=== PATIENT | female | born 1980 | race Caucasian/White ===

== ENCOUNTER 2019-06-20 09:59 | Inpatient (IN) | payer SELFPAY ==
[2019-06-20] VITALS (8 sets, daily range): BP systolic 132–188; BP diastolic 83–146; PULSE 88–129; RESP 14–20; TEMP 36.5–37; O2SAT 93–98
[2019-06-20] MEDS: folic acid 1 MG, multivitamin inj 10 ML, thiamine 100 MG in sodium chloride 0.9% 1,000 ML 252.8 MG IV (10:31)
[2019-06-20 10:39] LABS: Basophils # 0.1 10^3/uL (0.0-0.1); Eosinophils # 0.1 10^3/uL (0.0-0.8); Eosinophils % 1.5 %; Hematocrit 42.3 % (37.0-47.0); Hemoglobin 14.5 g/dL (11.5-15.3); Lymphocytes # 1.8 10^3/uL (0.8-4.8); Lymphocytes % 30.9 %; Mean Corpuscular HGB Conc 34.3 g/dL (30.0-36.0); Mean Corpuscular Hemoglobin 33.2 pg (28.0-34.0); Mean Corpuscular Volume 96.8 fL (81-99); Mean Platelet Volume 8.9 fL (7.4-10.4); Monocytes # 0.7 10^3/uL (0.2-0.9); Monocytes % 11.1 %; Neutrophils # 3.2 10^3/uL (1.8-7.7); Neutrophils % 55.3 %; Nucleated Red Blood Cells % 0 %; Platelet Count 406 10^3/cmm (130-400); Red Blood Count 4.37 10^6/uL (4.1-5.3); Red Cell Distribution Width 15.2 % (12.1-15.1); White Blood Count 5.9 10^3/uL (4.0-10.0)
[2019-06-20 10:51] LABS: Alanine Aminotransferase 28 U/L (0-33); Albumin Level 5.2 g/dL (3.5-5.2); Alkaline Phosphatase 122 IU/L (35-105); Anion Gap 19.2 (5-19); Aspartate Amino Transferase 89 U/L (0-32); Blood Urea Nitrogen 10 mg/dL (6-20); Calcium 10.2 mg/Dl (8.6-10.0); Carbon Dioxide 24 mmol/L (22-29); Chloride 92 mmol/L (98-107); Globulin 2.7 g/dL (1.3-4.6); Glomerular Filtration Rate 111.9 mL/min (90-130); Glucose 110 mg/dL (74-109); Potassium 3.2 mmol/L (3.5-5.1); Sodium 132 mmol/L (136-145); Total Bilirubin 1.6 mg/dL (0.15-1.2); Total Protein 7.9 g/dL (6.6-8.7)
[2019-06-20 10:53] LABS: HCG, Serum Qual Negative (Negative)
--- NOTE | 2019-06-20 11:10 | PC.NURSE ---
pt complaining of IV site pain. IV site unremarkable.
[2019-06-20 11:20] LABS: Acetaminophen < 5.0 ug/mL (10-30); Salicylate < 0.3 mg/dL (3-10)
[2019-06-20 11:22] LABS: Alcohol Level 303 mg/dL (0-10)
[2019-06-20 11:41] LABS: Amphetamines Screen Urine Negative (Negative); Barbiturates Screen Urine Negative (Negative); Benzodiazepines Screen Urine Negative (Negative); Cocaine Screen Urine Negative (Negative); Opiate Screen Urine Negative (Negative); PCP Screen Urine Negative (Negative); THC Screen Urine Positive (Negative)
--- NOTE | 2019-06-20 11:46 | ED_ITS ---
HPI - Psych General: Chief Complaint: Psychiatric Symptoms Stated Complaint: mhe Time Seen by Provider: 06/20/19 10:02 Source: patient Mode of arrival: ambulatory Limitations: no limitations History of Present Illness: HPI Narrative: Patient is a 39-year-old female who presents to ED today with complaints of worsening depression; patient states she is having a lot of difficulty with her , his family, and his kids; states the added stress test caused her to feel hopeless and worthless; in addition patient reports she is a chronic alcoholic; reports she would like help with this; she admits to marijuana use but no other drug use; she denies suicidal or homicidal ideations MD complaint: feels depressed Duration: constant History of same: Yes Context: recent alcohol abuse Associated psychiatric symptoms: depression Associated symptoms: Reports depression; Deny auditory hallucinations, visual hallucinations, homicidal ideation or suicidal ideation Review of Systems Const: Denies: fever or chills Card: Denies: chest pain, palpitations, lightheadedness or syncope Resp: Denies: shortness of breath GI: Denies: abdominal pain, nausea, vomiting or diarrhea Skin/Breast: Denies: rash Neuro: Denies: headache Psych: Reports: anxiety and depression; Denies: visual hallucinations, auditory hallucinations, suicidal ideation or homicidal ideation Physical Exam Const: COMMON NORMALS: no apparent distress, oriented x3, alert and well nourished GENERAL APPEARANCE: cooperative and well kempt Resp: COMMON NORMALS: normal respiratory effort and clear to auscultation bilaterally AUSCULTATION: clear to auscultation bilaterally Cardio: COMMON NORMALS: regular rate and regular rhythm RATE: regular rate RHYTHM: regular rhythm Neuro: COMMON NORMALS: oriented x3 SENSORIUM/ORIENTATION: Yes alert Psych: COMMON NORMALS: mental status grossly normal, thought process normal, cooperative, affect normal, speech normal and activity/motor behavior normal APPEARANCE: Yes well kempt ACTIVITY/MOTOR BEHAVIOR: Yes appropriate eye contact and No psychomotor agitation SPEECH: Yes normal speech THOUGHT PROCESS: normal thought process MEMORY/COGNITION: Yes cognition grossly intact INSIGHT: insight good JUDGEMENT: judgment good OTHER: tearful during exam MDM - Psych MDM Narrative: Medical decision making narrative: Dr. Rankin will place admit orders. Lab Data: Labs: Lab Results 06/20/19 06/20/19 06/20/19 Range/Units 10:22 10:22 10:22 WBC 5.9 (4.0-10.0) 10^3/ uL RBC 4.37 (4.1-5.3) 10^6/u L Hgb 14.5 (11.5-15.3) g/dL Hct 42.3 (37.0-47.0) % MCV 96.8 (81-99) fL MCH 33.2 (28.0-34.0) pg MCHC 34.3 (30.0-36.0) g/dL RDW 15.2 H (12.1-15.1) % Plt Count 406 H (130-400) 10^3/c mm MPV 8.9 (7.4-10.4) fL Neut % (Auto) 55.3 % Lymph % (Auto) 30.9 % Lander % (Auto) 11.1 % Eos % (Auto) 1.5 % Baso % (Auto) 1.0 % Neut # (Auto) 3.2 (1.8-7.7) 10^3/u L Lymph # (Auto) 1.8 (0.8-4.8) 10^3/u L Lander # (Auto) 0.7 (0.2-0.9) 10^3/u L Eos # (Auto) 0.1 (0.0-0.8) 10^3/u L Baso # (Auto) 0.1 (0.0-0.1) 10^3/u L Nucleated RBC % (a uto) 0 % Nucleated RBCs # 0.0 /100WBC Sodium 132 L (136-145) mmol/L Potassium 3.2 L (3.5-5.1) mmol/L Chloride 92 L (98-107) mmol/L Carbon Dioxide 24 (22-29) mmol/L Anion Gap 19.2 H (5-19) BUN 10 (6-20) mg/dL Creatinine 0.6 (0.5-0.9) mg/dL GFR Calculation 111.9 (90-130) mL/min Glucose 110 H (74-109) mg/dL Calcium 10.2 H (8.6-10.0) mg/Dl Magnesium (1.7-2.3) mg/dL Total Bilirubin 1.6 H (0.15-1.2) mg/dL AST 89 H (0-32) U/L ALT 28 (0-33) U/L Alkaline Phosphata se 122 H (35-105) IU/L Total Protein 7.9 (6.6-8.7) g/dL Albumin 5.2 (3.5-5.2) g/dL Globulin 2.7 (1.3-4.6) g/dL HCG, Qual Negative (Negative) Salicylates < 0.3 L (3-10) mg/dL Urine Opiates Scre en (Negative) ng/mL Acetaminophen < 5.0 L (10-30) ug/mL Ur Barbiturates Sc reen (Negative) ng/mL Ur Phencyclidine S crn (Negative) ng/mL Ur Amphetamines Sc reen (Negative) ng/mL U Benzodiazepines Scrn (Negative) ng/mL Urine Cocaine Scre en (Negative) ng/mL U Marijuana (THC) Screen (Negative) ng/mL Ethyl Alcohol 303 H* (0-10) mg/dL 06/20/19 06/20/19 Range/Units 10:22 10:30 WBC (4.0-10.0) 10^3/ uL RBC (4.1-5.3) 10^6/u L Hgb (11.5-15.3) g/dL Hct (37.0-47.0) % MCV (81-99) fL MCH (28.0-34.0) pg MCHC (30.0-36.0) g/dL RDW (12.1-15.1) % Plt Count (130-400) 10^3/c mm MPV (7.4-10.4) fL Neut % (Auto) % Lymph % (Auto) % Lander % (Auto) % Eos % (Auto) % Baso % (Auto) % Neut # (Auto) (1.8-7.7) 10^3/u L Lymph # (Auto) (0.8-4.8) 10^3/u L Lander # (Auto) (0.2-0.9) 10^3/u L Eos # (Auto) (0.0-0.8) 10^3/u L Baso # (Auto) (0.0-0.1) 10^3/u L Nucleated RBC % (a uto) % Nucleated RBCs # /100WBC Sodium (136-145) mmol/L Potassium (3.5-5.1) mmol/L Chloride (98-107) mmol/L Carbon Dioxide (22-29) mmol/L Anion Gap (5-19) BUN (6-20) mg/dL Creatinine (0.5-0.9) mg/dL GFR Calculation (90-130) mL/min Glucose (74-109) mg/dL Calcium (8.6-10.0) mg/Dl Magnesium 2.2 (1.7-2.3) mg/dL Total Bilirubin (0.15-1.2) mg/dL AST (0-32) U/L ALT (0-33) U/L Alkaline Phosphata se (35-105) IU/L Total Protein (6.6-8.7) g/dL Albumin (3.5-5.2) g/dL Globulin (1.3-4.6) g/dL HCG, Qual (Negative) Salicylates (3-10) mg/dL Urine Opiates Scre en Negative (Negative) ng/mL Acetaminophen (10-30) ug/mL Ur Barbiturates Sc reen Negative (Negative) ng/mL Ur Phencyclidine S crn Negative (Negative) ng/mL Ur Amphetamines Sc reen Negative (Negative) ng/mL U Benzodiazepines Scrn Negative (Negative) ng/mL Urine Cocaine Scre en Negative (Negative) ng/mL U Marijuana (THC) Screen Positive H (Negative) ng/mL Ethyl Alcohol (0-10) mg/dL Discharge Plan Discharge Patient Disposition: Xfer Psychiatric Hosp Clinical Impression: Chronic alcohol abuse Depression Qualifiers: Depression Type: major depressive disorder Major depression recurrence: recurrent Active/Remission status: currently active Major depression episode severity: moderate Qualified Code(s): F33.1 - Major depressive disorder, re current, moderate Acute alcohol intoxication Qualifiers: Complication of substance-induced condition: uncomplicated Qualified Code(s): F10.920 - Alcohol use, unspecified with intoxication, uncomplicated Condition: Stable Referrals: Obdulia Mejia FNP [Primary Care Provider] - Coding Level of Care Code ED Bowling [employer] Molder for yariel Fwdragan Exam Problem Focused
[2019-06-20 11:48] LABS: Magnesium 2.2 mg/dL (1.7-2.3)
--- NOTE | 2019-06-20 12:21 | PC.NURSE ---
complaining of headache.
--- NOTE | 2019-06-20 13:00 | PC.NURSE ---
NPU nurse requests IV removal and patient changed into paper scrubs. This was performed
[2019-06-20] MEDS: hyDROXYzine 25 mg Capsule 50 MG PO (13:40)
--- NOTE | 2019-06-20 13:41 | PC.NURSE ---
Addendum entered by Dona Moreno LPN 06/20/19 14:45: prn med effective pt no longer tearful, resting quietly in bed in room at current time, resp even et unlabored Original Note: PRN VISTARIL 50 MG GIVEN PO PER PT C/O ANXIETY. UPON ARRIVAL TO UNIT, PT TEARFUL, SHAKING, SCARED ABOUT BEING ADMITTED TO NPU. ASSURED BY STAFF WE ARE HERE TO PROVIDE EXCELLENT CARE. EDUCATED ABOUT UNIT RULES, PT VERBALIZED UNDERSTANDING. WILL CONT TO MONITOR FOR DESIRED MED EFFECTIVENESS.
--- NOTE | 2019-06-20 15:04 | PC.NURSE ---
PT NOTE; CLIENT PRESENTED TO THE UNIT WITH A NOSE PIERCING WITH A SMALL STUD IN PLACE . STAFF IN THE ER WELL STAFF ON THE UNIT WERE UNABLE TO REMOVE THE STUD FROM CLIENTS NOSE AT TIME OF ADMISSION. CLIENT IS BEING ADMITTED FOR DEPRESSION AND ETOH ABUSE. CLIENT DENIES SI/HI AND AUDITORY OR VISUAL HALLUCINATIONS. STAFF WILL CONTINUE TO MONITOR CLIENT AND DO 15 MINUTE ROUNDING PER UNIT POLICY RULES TO INSURE CLIENTS SAFETY WHILE SHE IS A PATIENT HERE ON THE UNIT.
[2019-06-20] MEDS: nicotine 21 mg Patch 1 PATCH TRANSDERMA (17:30)
[2019-06-20] MEDS: acetaminophen 325 mg Tablet 650 MG PO (22:04)
[2019-06-21] MEDS: acetaminophen 325 mg Tablet 650 MG PO (04:46)
[2019-06-21 05:54] VITALS: BP 147/106; PULSE 82; RESP 17; TEMP 36.5; O2SAT 98
[2019-06-21 08:08] VITALS: BP 146/98; PULSE 82; RESP 18; O2SAT 100
--- NOTE | 2019-06-21 08:15 | PC.NURSE ---
ativan 2mg administered per ciwa prtocol. med was scanned at 0912, but actually given at 0815. patient scored a 10. will monitor for drug effectiveness
[2019-06-21] MEDS: LORazepam 2 mg Tablet PO (09:12)
[2019-06-21] MEDS: folic acid 1 mg Tablet PO (09:13)
[2019-06-21] MEDS: thiamine 100 mg Tablet PO (09:13)
[2019-06-21] MEDS: multivitamin therapeutic Tablet 1 TAB PO (09:13)
--- NOTE | 2019-06-21 09:30 | PC.NURSE ---
FOLLOW UP PRN ATIVAN. PATIENT RESTING QUIETLY WITH EYES CLOSED. NO DISTRESS NOTED. WILL CONT TO MONITOR
--- NOTE | 2019-06-21 11:52 | P.HP_ITS ---
Providers/Chief Complaint Admitting Physician: Mike Mclain MD Primary Care Provider: Obdulia Mejia Chief Complaint: Depression,Alcohol Abuse HPI NPU History of Present Illness Christine Marr is a 39 year old female who presented to the emergency room with complaints of worsening depression, alcohol use chronic, and significant stressors with her family. This is her first psychiatric hospitalization and she reports and she presents to the interview with a significant change in the heart not wanting to be here and denying a desire for medication or any other kind of intervention. She reports that she had a bad night and was really stressed but now that she is slept she realizes that this is not a place for her. She is not really interested in answering questions and was mostly focused on whether or not she was on a 96-hour hold, meaning that she would have to stay. We discussed the fact that she was not on a hold and that as a voluntary patient she can choose to disengage from treatment. She denied any lethality, she reported an understanding that she needs to decrease her alcohol use, and did not really see her cannabis use as a problem to any degree. We discussed her ability to return to the emergency room, call crisis numbers or follow-up at [facility] to advance her mental health and addiction treatment. Psychiatric history: She denies significant treatment or medications, but endorses knowing she does have depression and anxiety issues. Substance abuse history: She does endorse ongoing cigarette, alcohol and marijuana use she denies any other significant addiction issues. And denies a current desire to pursue inpatient rehab or anything of that nature. She denied her psychosocial circumstances being contributory however notes in her chart do suggest some psychosocial challenges in the home. Meds NPU Home Medications Medication Instructions Recorded Confirmed Type Tylenol PM Extra Strength 2 tab PO BEDTIME 06/20/19 07/03/19 History lorazepam 0.5 mg tablet 0.5 mg PO QDAY PRN 07/03/19 07/03/19 History Allergies Allergy/AdvReac Type Severity Reaction Status Date / Time No Known Allergies Allergy Verified 07/03/19 16:45 PFSH NPU PFSH: Statuses (acute, chronic, etc) shown below reflect problem list status as previously entered and may not be historically accurate Social History Smoking and tobacco status: current every day smoker Alcohol intake: current Mental Status Exam MSE Comments: This is an overweight white female with adequate dress, grooming and eye contact. No abnormal movements except for mild psychomotor retardation. Cooperative with exam in no acute distress. Speech was slightly decreased rate and volume. Mood described as fine affect slightly subdued. Thought process organized. Thought content: Patient denied any suicidal or homicidal ideations, there were no delusions reported or noted, she denies any auditory or visual hallucinations. Attention and concentration were intact and memory appeared reliable but none were formally tested. She is alert and oriented x3. Insight and judgment are limited. Vitals/I&O/Wt Last Vital Signs Temp 97.7 F 06/21/19 05:54 Pulse 82 06/21/19 08:08 Resp 18 06/21/19 08:08 BP 146/98 06/21/19 08:08 Pulse Ox 100 06/21/19 08:08 Data NPU : 06/20/19 10:22 06/20/19 10:22 A&P Assessment and plan (1) Cannabis abuse: This is a 39-year-old white female with a long history of alcohol use and depression who presented to the emergency room endorsing a desire for inpatient treatment however upon arriving on the unit and staying overnight she has changed her mind and is desiring to pursue any treatment or follow-up on her own. 1. Continue current medication. 2. Encourage outpatient follow-up for her mental health and addiction issues. 3. Patient is voluntary and lacks any signs of credible lethality and denies all lethality and therefore has no grounds for 96-hour hold. 4. Recommend sober living aftercare at the highest level to which she is willing to commit. 5. Patient provided with crisis numbers in the event she has a change of heart or symptoms worsen. Status: Acute Code(s): F12.10 - Cannabis abuse, uncomplicated Involuntary Hold Information 96 Hour Hold: 96 Hour Involuntary Admission: No Attestations NPU Medical Necessity Statement*: Inpatient hospitalization would likely be beneficial and is medically necessary and would be clinically appropriate. However patient has no lethality or issues which would necessitate forced treatment and as a voluntary patient she is able to disengage her treatment AMA. Coding Level of Care Code Acute Substitute Bus Driver for Janis Gleason Diagnoses Cannabis abuse F12.10
--- NOTE | 2019-06-21 13:15 | PM.NDC ---
Diagnoses at Discharge Discharge Diagnosis (1) Cannabis abuse: Status: Acute Reason for Visit Reason for Visit: Reason For Visit: Depression,Alcohol Abuse Brief History: [facility] N[facility] History of Present Illness Christine Marr is a 39 year old female who presented to the emergency room with complaints of worsening depression, alcohol use chronic, and significant stressors with her family. This is her first psychiatric hospitalization and she reports and she presents to the interview with a significant change in the heart not wanting to be here and denying a desire for medication or any other kind of intervention. She reports that she had a bad night and was really stressed but now that she is slept she realizes that this is not a place for her. She is not really interested in answering questions and was mostly focused on whether or not she was on a 96-hour hold, meaning that she would have to stay. We discussed the fact that she was not on a hold and that as a voluntary patient she can choose to disengage from treatment. She denied any lethality, she reported an understanding that she needs to decrease her alcohol use, and did not really see her cannabis use as a problem to any degree. We discussed her ability to return to the emergency room, call crisis numbers or follow-up at [facility] to advance her mental health and addiction treatment. Psychiatric history: She denies significant treatment or medications, but endorses knowing she does have depression and anxiety issues. Substance abuse history: She does endorse ongoing cigarette, alcohol and marijuana use she denies any other significant addiction issues. And denies a current desire to pursue inpatient rehab or anything of that nature. She denied her psychosocial circumstances being contributory however notes in her chart do suggest some psychosocial challenges in the home. Hospital Course Hospital Course Christine was admitted to the inpatient unit for assistance with her depression and alcohol use as well as consideration of her cannabis use and psychosocial circumstances. She was admitted on a voluntary basis and the next morning she had expressed a desire to be discharged AGAINST MEDICAL ADVICE. She was evaluated and deemed to lack any credible lethality, she also denied thoughts to hurt herself or kill herself or hurt or kill anyone else. She was given no medications. During the hospitalization she had routine laboratory studies which were within normal limits except for a few outliers. Additionally she had a general medical evaluation which was also within normal limits except for noted intoxication. Discharge Summary At the time of discharge all lethality was denied, depression and anxiety were denied, a plan to avoid drugs of abuse was endorsed. And a commitment to outpatient follow-up which was recommended prior to discharge was reported. Patient was voluntary and lacking evidence of viable issues warranting a 96 hour hold, so was discharged. Involuntary Hold Information 96 Hour Hold: 96 Hour Involuntary Admission: No Mental Status Exam MSE Comments: This is an overweight white female with adequate dress, grooming and eye contact. No abnormal movements except for mild psychomotor retardation. Cooperative with exam in no acute distress. Speech was slightly decreased rate and volume. Mood described as fine affect slightly subdued. Thought process organized. Thought content: Patient denied any suicidal or homicidal ideations, there were no delusions reported or noted, she denies any auditory or visual hallucinations. Attention and concentration were intact and memory appeared reliable but none were formally tested. She is alert and oriented x3. Insight and judgment are limited. Discharge Data Vitals: Last Vital Signs Temp 98.5 F 06/21/19 15:58 Pulse 110 H 06/21/19 15:58 Resp 17 06/21/19 15:58 BP 153/112 06/21/19 15:58 Pulse Ox 99 06/21/19 15:58 Discharge Plan Discharge Patient Disposition: Home, Self-Care Condition: Stable Prescriptions: Continued Tylenol PM Extra Strength 25-500 mg Tablet 2 tab PO BEDTIME RF: 0 No Action lorazepam [Ativan] 0.5 mg tablet 0.5 mg PO QDAY PRNRF: 0 albuterol sulfate [ProAir HFA] 90 mcg/actuation HFA aerosol inhaler 2 puff INHALATION Q6H PRN (Reason: shortness of breath or wheezing) Qty: 8.5 RF: 0 Discharge Orders: Discharge Order (Routine); Ordered 06/21/19 Ordered By: Mike Mclain Referrals: Obdulia Mejia FNP [Primary Care Provider] - Activity Restrictions/Additional Instructions: To initiate services at [facility] you may go there during the walk-in hours and request initial intake. Walk-in hours 7:30-2:30 Friday through Friday at [facility] ([facility]) [address] [place] [address] [facility] crisis hotline Discharge Date/Time: 06/21/19 16:12 Discharge Attestations NPU Time Spent in Discharge Care*: greater than 30 min Specific Discharge Activities: Specific discharge activities: educating patient, discussing with case finishing machine adjuster/social workers/dc planners, documenting/other paperwork and evaluating patient/reviewing data Coding Level of Care Code Acute Customer Care Voice Consultant for Kamlag Fwd Diagnoses Cannabis abuse F12.10
[2019-06-21 14:00] VITALS: BP 163/110; PULSE 110; RESP 17; TEMP 36.9; O2SAT 99
[2019-06-21] MEDS: nicotine 2 mg Gum BUCCAL (14:23)
[2019-06-21] MEDS: hyDROXYzine 25 mg Capsule 50 MG PO (14:51)
--- NOTE | 2019-06-21 14:53 | PC.NURSE ---
PATIENT C/O ANXIETY. VISTARIL 50 MG ADMINISTERED. WILL MONITOR FOR DRUG EFFECTIVENESS
[2019-06-21 15:50] VITALS: PULSE 110; RESP 17; TEMP 36.9; O2SAT 99
[2019-06-21 15:52] VITALS: BP 153/112; PULSE 110; RESP 17; TEMP 36.9; O2SAT 99
[2019-06-21 15:58] VITALS: BP 153/112; PULSE 110; RESP 17; TEMP 36.9; O2SAT 99
--- NOTE | 2019-06-21 16:05 | PC.NURSE ---
PATIENTS BP 153/112 162/115. PHYSICIAN AWARE OF THIS. REPORTS PATIENT IS BEING DISCHARGED AGAINST HIS RECOMMENDATION TO STAY AND THIS THESE HIGH READINGS ARE PART OF HER WITHDRAWL SYMPTOMS. PATIENT STILL WISHES TO LEAVE
== END 2019-06-21 16:12 | disposition home or self-care (01) | DRG 885 ==
LOC: ER 12:43 → NP 13:11
PROVIDERS: Admitting Provider Psychiatry & Neurology Psychiatry; Emergency Provider Physician Assistant; PCP Nurse Practitioner; Visit Provider Psychiatry & Neurology Psychiatry
DX: F33.1 Major depressive disorder, recurrent, moderate (principal); F17.210 Nicotine dependence, cigarettes, uncomplicated; F10.920 Alcohol use, unspecified with intoxication, uncomplicated
CPT/HCPCS: 12345; 80053; 80307; 83735; 84703; 85025; 99282; J3411; J3490; J7030

== ENCOUNTER → 2019-07-03 16:47 | Outpatient (BNVA) | payer SELFPAY | PROVIDERS: Visit Provider Nurse Practitioner Family | DX: R50.9 Fever, unspecified (principal) | CPT/HCPCS: 87804 ==

== ENCOUNTER 2019-07-05 13:26 | Emergency (ER) | payer SELFPAY ==
[2019-07-05 14:22] VITALS: BP 160/126; PULSE 106; RESP 25; O2SAT 100; BMI 23.2
--- NOTE | 2019-07-05 17:04 | ED_ITS ---
Documented by User: Jm Mclean DO 07/12/19 06:44 HPI - Seizure General: Chief Complaint: Seizure Stated Complaint: seizure/fall/headache Time Seen by Provider: 07/05/19 16:33 History of Present Illness: HPI Narrative: 39-year-old female presents status post seizure she had about 4 hours prior to arrival. She did bite the right side of her tongue she also has a hematoma on the back left side of her head and large bruise on the right elbow. She was seizing for an unknown length of time she is had this previously was seen and evaluated started on medications but she did not continue the medication at her primary care doctor. She has had seizures multiple times in the past but has never had a full and thorough work- up for him. She does have a bit of a headache now and is somewhat drowsy and cold generally postictal although the worst of the postictal state seems to have already passed. Associated symptoms: Deny chest pain, chills, confusion, fever(s), malaise or syncope Review of Systems Const: Denies: fever, chills, body aches, fatigue, malaise or night sweats Eyes: Denies: change in vision or blurry vision ENMT: Denies: throat pain, oral sores/lesions, dental pain, nasal discharge or nasal congestion Card: Denies: chest pain, palpitations, irregular heart rhythm, edema, syncope , shortness of breath on exertion, shortness of breath when lying down or leg pain with exertion Resp: Denies: shortness of breath, productive cough, non-productive cough or wheezing GI: Denies: abdominal pain, nausea, vomiting, vomiting blood, coffee grounds in vomit, difficulty swallowing, heartburn/indigestion, diarrhea, constipation, cramping, blood in stool or black tarry stool : Denies: flank pain, painful urination, urinary frequency, urinary urgency, urinary incontinence or blood in urine Musc: Denies: neck pain, back pain, extremity pain, extremity swelling, joint pain or joint swelling Skin/Breast: Denies: rash, itching or redness Neuro: Reports: seizure-like activity; Denies: headache, numbness in extremities, weakness in extremities, changes in sensation, lack of coordination, difficulty walking, frequent falls, dizziness, vertigo or confusion Psych: Denies: anxiety, depression, loss of interest, visual hallucinations, auditory hallucinations, suicidal ideation or homicidal ideation Endo: Denies: excessive urination, excessive thirst, tired all the time or cold intolerance Christiano/Lymph: Denies: easy bruising, easy bleeding, petechiae, enlarged lymph nodes or tender lymph nodes PFSH ED PFSH: Statuses (acute, chronic, etc) shown below reflect problem list status as previously entered and may not be historically accurate Social History Smoking and tobacco status: current every day smoker Alcohol intake: current Female Reproductive History: Date of last menstrual period: 06/04/19 Physical Exam Const: COMMON NORMALS: no apparent distress GENERAL APPEARANCE: cooperative and comfortable ORIENTATION/CONSCIOUSNESS: Yes awake, Yes oriented to person, Yes oriented to place and Yes oriented to time HENMT: COMMON NORMALS: normocephalic, head/scalp atraumatic, hearing grossly normal bilaterally, external ears normal, EAC's normal, TM's normal bilaterally, nasal mucous membranes and turbinates normal, moist oral mucous membranes and oropharynx normal HEAD & SCALP: normocephalic and atraumatic NOSE: nasal mucous membranes and turbinates normal EXTERNAL EAR: Yes external ears normal EXTERNAL AUDITORY CANAL: EAC's normal TYMPANIC MEMBRANE: TM's normal bilaterally OTHER: Patient has bruising on the right side of the tongue with ecchymosis that appears fresh. Eye: COMMON NORMALS: PERRL, EOMs intact bilaterally, conjunctivae normal and no scleral icterus CONJUNCTIVA: Yes conjunctivae normal PUPIL: Yes PERRL Neck/C-Spine: COMMON NORMALS: full ROM, no lymphadenopathy, supple and no JVD Lymph: LYMPHATIC: no lymphadenopathy noted and no lymphedema noted Resp: COMMON NORMALS: normal respiratory effort, no retractions, no use of accessory muscles and clear to auscultation bilaterally AUSCULTATION: clear to auscultation bilaterally Cardio: COMMON NORMALS: no JVD, regular rate, regular rhythm and no murmurs RATE: regular rate RHYTHM: regular rhythm GI: COMMON NORMALS: soft to palpation and no hepatosplenomegaly AUSCULTATION: Yes normoactive bowel sounds PALPATION: Yes soft, No tender, No guarding and Yes no hepatosplenomegaly Extremity: COMMON NORMALS: normal to inspection, normal capillary refill, no clubbing, cyanosis or edema, no calf tenderness and no pedal edema Neuro: SENSORIUM/ORIENTATION: Yes oriented to person, Yes oriented to place and Yes oriented to time Skin: COMMON NORMALS: no rashes or lesions noted GENERAL SKIN EXAM: no rashes or lesions noted Course ED course: Patient appears to have had recent seizure. We will go ahead and do the work-up as above. Discussed with Dr. Burciaga at change of shift P assumes care will follow-up upon completion of labs and make disposition. Vital Signs: Vital signs: Vital Signs Pulse Rate 81 07/05/19 20:56 Respiratory Rate 16 07/05/19 20:56 Blood Pressure 128/93 07/05/19 20:56 Pulse Oximetry 95 07/05/19 20:56 MDM - Seizure Lab Data: Labs: Lab Results 07/05/19 07/05/19 07/05/19 Range/Units 17:43 18:04 18:04 WBC 12.1 H (4.0-10.0) 10^3/ uL RBC 3.71 L (4.1-5.3) 10^6/u L Hgb 12.3 (11.5-15.3) g/dL Hct 36.6 L (37.0-47.0) % MCV 98.7 (81-99) fL MCH 33.2 (28.0-34.0) pg MCHC 33.6 (30.0-36.0) g/dL RDW 15.8 H (12.1-15.1) % Plt Count 211 (130-400) 10^3/c mm MPV 11.4 H (7.4-10.4) fL Neut % (Auto) 82.1 % Lymph % (Auto) 11.3 % [place] % (Auto) 5.4 % Eos % (Auto) 0.5 % Baso % (Auto) 0.4 % Neut # (Auto) 9.9 H (1.8-7.7) 10^3/u L Lymph # (Auto) 1.4 (0.8-4.8) 10^3/u L [place] # (Auto) 0.7 (0.2-0.9) 10^3/u L Eos # (Auto) 0.1 (0.0-0.8) 10^3/u L Baso # (Auto) 0.1 (0.0-0.1) 10^3/u L Nucleated RBC % (a uto) 0 % Nucleated RBCs # 0.0 /100WBC Sodium (136-145) mmol/L Potassium (3.5-5.1) mmol/L Chloride (98-107) mmol/L Carbon Dioxide (22-29) mmol/L Anion Gap (5-19) BUN (6-20) mg/dL Creatinine (0.5-0.9) mg/dL GFR Calculation (90-130) mL/min Glucose (74-109) mg/dL Calcium (8.5-10.5) mg/dL Magnesium (1.7-2.3) mg/dL Total Bilirubin (0.15-1.2) mg/dL AST (0-32) U/L ALT (0-33) U/L Alkaline Phosphata se (35-105) IU/L Creatine Kinase (26-192) U/L Total Protein (6.6-8.7) g/dL Albumin (3.5-5.2) g/dL Globulin (1.3-4.6) g/dL HCG, Qual Negative (Negative) Urine Color Brown (Yellow) Urine Appearance Turbid (CLEAR) Urine pH 5 (5-7) Ur Specific Gravit y 1.025 (1.005-1.030) Urine Protein 1+ H (Negative) Urine Glucose (UA) Norm (Normal) Urine Ketones 1+ H (Negative) Urine Occult Blood Neg (Negative) Urine Nitrate Negative (Negative) Urine Bilirubin 1+ H (NEGATIVE) Urine Urobilinogen 1 H (Negative) mg/dL Ur Leukocyte Maddison ase Trace H (Negative) Urine RBC 0-4 H (0-2) /hpf Urine WBC 0-4 H (0-5) /hpf Ur Squamous Epith Cells 0-4 H (0-5) Urine Bacteria 4+ H (NONE) Hyaline Casts 0-4 H Fine Granular Cast s 0-4 H /lpf Urine Mucus 1+ Salicylates (3-10) mg/dL Urine Opiates Scre en (Negative) ng/mL Acetaminophen (10-30) ug/mL Ur Barbiturates Sc reen (Negative) ng/mL Ur Phencyclidine S crn (Negative) ng/mL Ur Amphetamines Sc reen (Negative) ng/mL U Benzodiazepines Scrn (Negative) ng/mL Urine Cocaine Scre en (Negative) ng/mL U Marijuana (THC) Screen (Negative) ng/mL Ethyl Alcohol (0-10) mg/dL 07/05/19 07/05/19 07/05/19 Range/Units 18:04 18:38 18:38 WBC (4.0-10.0) 10^3/ uL RBC (4.1-5.3) 10^6/u L Hgb (11.5-15.3) g/dL Hct (37.0-47.0) % MCV (81-99) fL MCH (28.0-34.0) pg MCHC (30.0-36.0) g/dL RDW (12.1-15.1) % Plt Count (130-400) 10^3/c mm MPV (7.4-10.4) fL Neut % (Auto) % Lymph % (Auto) % [place] % (Auto) % Eos % (Auto) % Baso % (Auto) % Neut # (Auto) (1.8-7.7) 10^3/u L Lymph # (Auto) (0.8-4.8) 10^3/u L [place] # (Auto) (0.2-0.9) 10^3/u L Eos # (Auto) (0.0-0.8) 10^3/u L Baso # (Auto) (0.0-0.1) 10^3/u L Nucleated RBC % (a uto) % Nucleated RBCs # /100WBC Sodium 133 L (136-145) mmol/L Potassium 2.8 L* (3.5-5.1) mmol/L Chloride 95 L (98-107) mmol/L Carbon Dioxide 23 (22-29) mmol/L Anion Gap 17.8 (5-19) BUN 14 (6-20) mg/dL Creatinine 0.6 (0.5-0.9) mg/dL GFR Calculation 111.9 (90-130) mL/min Glucose 105 (74-109) mg/dL Calcium 10.3 (8.5-10.5) mg/dL Magnesium 1.6 L (1.7-2.3) mg/dL Total Bilirubin 1.7 H (0.15-1.2) mg/dL AST 39 H (0-32) U/L ALT 15 (0-33) U/L Alkaline Phosphata se 97 (35-105) IU/L Creatine Kinase 119 (26-192) U/L Total Protein 7.5 (6.6-8.7) g/dL Albumin 4.9 (3.5-5.2) g/dL Globulin 2.6 (1.3-4.6) g/dL HCG, Qual (Negative) Urine Color (Yellow) Urine Appearance (CLEAR) Urine pH (5-7) Ur Specific Gravit y (1.005-1.030) Urine Protein (Negative) Urine Glucose (UA) (Normal) Urine Ketones (Negative) Urine Occult Blood (Negative) Urine Nitrate (Negative) Urine Bilirubin (NEGATIVE) Urine Urobilinogen (Negative) mg/dL Ur Leukocyte Maddison ase (Negative) Urine RBC (0-2) /hpf Urine WBC (0-5) /hpf Ur Squamous Epith Cells (0-5) Urine Bacteria (NONE) Hyaline Casts Fine Granular Cast s /lpf Urine Mucus Salicylates < 0.3 L (3-10) mg/dL Urine Opiates Scre en Negative (Negative) ng/mL Acetaminophen < 5.0 L (10-30) ug/mL Ur Barbiturates Sc reen Negative (Negative) ng/mL Ur Phencyclidine S crn Negative (Negative) ng/mL Ur Amphetamines Sc reen Negative (Negative) ng/mL U Benzodiazepines Scrn Negative (Negative) ng/mL Urine Cocaine Scre en Negative (Negative) ng/mL U Marijuana (THC) Screen Positive H (Negative) ng/mL Ethyl Alcohol < 10 (0-10) mg/dL Discharge Plan Discharge Patient Disposition: Home, Self-Care Clinical Impression: Generalized seizure Condition: Stable Prescriptions: New Keppra 500 mg tablet 500 mg PO Q12H 14 Days Qty: 28 RF: 0 No Action lorazepam [Ativan] 0.5 mg tablet 0.5 mg PO QDAY PRNRF: 0 albuterol sulfate [ProAir HFA] 90 mcg/actuation HFA aerosol inhaler 2 puff INHALATION Q6H PRN (Reason: shortness of breath or wheezing) Qty: 8.5 RF: 0 Tylenol PM Extra Strength 25-500 mg Tablet 2 tab PO BEDTIME RF: 0 Discharge Orders: Discharge Order (Routine); Ordered 07/05/19 Ordered By: Emily Sahu Referrals: Kathryn Bruno MD [Physician] - 4-7 days Sharonda Cho DO [Physician] - 4-7 days Discharge Diet: Advance as tolerated Discharge Activity: Resume usual activity Patient Instructions: Epilepsy (ED) Activity Restrictions/Additional Instructions: Please return to the ER immediately for any of the signs or symptoms listed on your discharge instruction sheets, worsening/changing of your symptoms, you are not getting better as quickly as expected, or for ANY other cause or concerns. No driving, no working at heights, no tub baths, no swimming alone or anything else that would put you at risk should you have another seizure. Discharge Date/Time: 07/05/19 20:57 Sign Out Sign Out Data: Patient Sign Out occurred on 07/05/19 at 18:12. Patient's care was discussed, and care was transferred from Jm Mclean DO to Emily Sahu. Sign Out Comment: hx seizures, seizure at noon today, hit head. GIven Keppra. Labs/CT head pending Last updated by Jm Mclean DO at 07/05/19 18:11 Coding Level of Care Code ED Council Member for Chg Fwd Documented by User: Emily Sahu 07/05/19 19:33 HPI - Seizure General: Chief Complaint: Seizure Stated Complaint: seizure/fall/headache Time Seen by Provider: 07/05/19 16:33 PFSH ED PFSH: Statuses (acute, chronic, etc) shown below reflect problem list status as previously entered and may not be historically accurate Social History Smoking and tobacco status: current every day smoker Alcohol intake: current Course Vital Signs: Vital signs: Vital Signs Pulse Rate 81 07/05/19 20:56 Respiratory Rate 16 07/05/19 20:56 Blood Pressure 128/93 07/05/19 20:56 Pulse Oximetry 95 07/05/19 20:56 MDM - Seizure MDM Narrative: Medical decision making narrative: Christine is a 39-year-old female who comes in with a breakthrough seizure. She is not taking her medications as she should. She will drink sometimes but she states this was not an alcohol withdrawal seizure. The patient is feeling better at this time. Her CT is normal. Her physical exam here is normal except for a bite fran to the tongue and a bruise to the back of her right elbow. The patient is feeling better and wants to go home. She does agree to take Keppra as prescribed and will follow-up with Dr. Bruno as well as establish with a primary care Dr. Cho. She denies any other concerns at this time would like to be discharged. Lab Data: Attestation: I reviewed the patient's lab results. Labs: Lab Results 07/05/19 07/05/19 07/05/19 Range/Units 17:43 18:04 18:04 WBC 12.1 H (4.0-10.0) 10^3/ uL RBC 3.71 L (4.1-5.3) 10^6/u L Hgb 12.3 (11.5-15.3) g/dL Hct 36.6 L (37.0-47.0) % MCV 98.7 (81-99) fL MCH 33.2 (28.0-34.0) pg MCHC 33.6 (30.0-36.0) g/dL RDW 15.8 H (12.1-15.1) % Plt Count 211 (130-400) 10^3/c mm MPV 11.4 H (7.4-10.4) fL Neut % (Auto) 82.1 % Lymph % (Auto) 11.3 % [place] % (Auto) 5.4 % Eos % (Auto) 0.5 % Baso % (Auto) 0.4 % Neut # (Auto) 9.9 H (1.8-7.7) 10^3/u L Lymph # (Auto) 1.4 (0.8-4.8) 10^3/u L [place] # (Auto) 0.7 (0.2-0.9) 10^3/u L Eos # (Auto) 0.1 (0.0-0.8) 10^3/u L Baso # (Auto) 0.1 (0.0-0.1) 10^3/u L Nucleated RBC % (a uto) 0 % Nucleated RBCs # 0.0 /100WBC Sodium (136-145) mmol/L Potassium (3.5-5.1) mmol/L Chloride (98-107) mmol/L Carbon Dioxide (22-29) mmol/L Anion Gap (5-19) BUN (6-20) mg/dL Creatinine (0.5-0.9) mg/dL GFR Calculation (90-130) mL/min Glucose (74-109) mg/dL Calcium (8.5-10.5) mg/dL Magnesium (1.7-2.3) mg/dL Total Bilirubin (0.15-1.2) mg/dL AST (0-32) U/L ALT (0-33) U/L Alkaline Phosphata se (35-105) IU/L Creatine Kinase (26-192) U/L Total Protein (6.6-8.7) g/dL Albumin (3.5-5.2) g/dL Globulin (1.3-4.6) g/dL HCG, Qual Negative (Negative) Urine Color Brown (Yellow) Urine Appearance Turbid (CLEAR) Urine pH 5 (5-7) Ur Specific Gravit y 1.025 (1.005-1.030) Urine Protein 1+ H (Negative) Urine Glucose (UA) Norm (Normal) Urine Ketones 1+ H (Negative) Urine Occult Blood Neg (Negative) Urine Nitrate Negative (Negative) Urine Bilirubin 1+ H (NEGATIVE) Urine Urobilinogen 1 H (Negative) mg/dL Ur Leukocyte Maddison ase Trace H (Negative) Urine RBC 0-4 H (0-2) /hpf Urine WBC 0-4 H (0-5) /hpf Ur Squamous Epith Cells 0-4 H (0-5) Urine Bacteria 4+ H (NONE) Hyaline Casts 0-4 H Fine Granular Cast s 0-4 H /lpf Urine Mucus 1+ Salicylates (3-10) mg/dL Urine Opiates Scre en (Negative) ng/mL Acetaminophen (10-30) ug/mL Ur Barbiturates Sc reen (Negative) ng/mL Ur Phencyclidine S crn (Negative) ng/mL Ur Amphetamines Sc reen (Negative) ng/mL U Benzodiazepines Scrn (Negative) ng/mL Urine Cocaine Scre en (Negative) ng/mL U Marijuana (THC) Screen (Negative) ng/mL Ethyl Alcohol (0-10) mg/dL 07/05/19 07/05/19 07/05/19 Range/Units 18:04 18:38 18:38 WBC (4.0-10.0) 10^3/ uL RBC (4.1-5.3) 10^6/u L Hgb (11.5-15.3) g/dL Hct (37.0-47.0) % MCV (81-99) fL MCH (28.0-34.0) pg MCHC (30.0-36.0) g/dL RDW (12.1-15.1) % Plt Count (130-400) 10^3/c mm MPV (7.4-10.4) fL Neut % (Auto) % Lymph % (Auto) % [place] % (Auto) % Eos % (Auto) % Baso % (Auto) % Neut # (Auto) (1.8-7.7) 10^3/u L Lymph # (Auto) (0.8-4.8) 10^3/u L [place] # (Auto) (0.2-0.9) 10^3/u L Eos # (Auto) (0.0-0.8) 10^3/u L Baso # (Auto) (0.0-0.1) 10^3/u L Nucleated RBC % (a uto) % Nucleated RBCs # /100WBC Sodium 133 L (136-145) mmol/L Potassium 2.8 L* (3.5-5.1) mmol/L Chloride 95 L (98-107) mmol/L Carbon Dioxide 23 (22-29) mmol/L Anion Gap 17.8 (5-19) BUN 14 (6-20) mg/dL Creatinine 0.6 (0.5-0.9) mg/dL GFR Calculation 111.9 (90-130) mL/min Glucose 105 (74-109) mg/dL Calcium 10.3 (8.5-10.5) mg/dL Magnesium 1.6 L (1.7-2.3) mg/dL Total Bilirubin 1.7 H (0.15-1.2) mg/dL AST 39 H (0-32) U/L ALT 15 (0-33) U/L Alkaline Phosphata se 97 (35-105) IU/L Creatine Kinase 119 (26-192) U/L Total Protein 7.5 (6.6-8.7) g/dL Albumin 4.9 (3.5-5.2) g/dL Globulin 2.6 (1.3-4.6) g/dL HCG, Qual (Negative) Urine Color (Yellow) Urine Appearance (CLEAR) Urine pH (5-7) Ur Specific Gravit y (1.005-1.030) Urine Protein (Negative) Urine Glucose (UA) (Normal) Urine Ketones (Negative) Urine Occult Blood (Negative) Urine Nitrate (Negative) Urine Bilirubin (NEGATIVE) Urine Urobilinogen (Negative) mg/dL Ur Leukocyte Maddison ase (Negative) Urine RBC (0-2) /hpf Urine WBC (0-5) /hpf Ur Squamous Epith Cells (0-5) Urine Bacteria (NONE) Hyaline Casts Fine Granular Cast s /lpf Urine Mucus Salicylates < 0.3 L (3-10) mg/dL Urine Opiates Scre en Negative (Negative) ng/mL Acetaminophen < 5.0 L (10-30) ug/mL Ur Barbiturates Sc reen Negative (Negative) ng/mL Ur Phencyclidine S crn Negative (Negative) ng/mL Ur Amphetamines Sc reen Negative (Negative) ng/mL U Benzodiazepines Scrn Negative (Negative) ng/mL Urine Cocaine Scre en Negative (Negative) ng/mL U Marijuana (THC) Screen Positive H (Negative) ng/mL Ethyl Alcohol < 10 (0-10) mg/dL Imaging Data^: CT Head: Radiologist's impression: [address] [address] [address] Scan Report Signed Patient: Christine Marr Unit #: [id number] : 1980 Age/Sex: 39 / F ADM Date: 07/05/19 Loc: ER Room/Bed: Attending Dr: Ordering Provider/Ordering MD: Jm Mclean DO Date of Service: 07/05/19 Procedure(s): CT head wo con* 12717 Accession Number(s): [id number] Report Number: [id number] PROCEDURE INFORMATION: Exam: CT Head Without Contrast Exam date and time: 07/05/2019 5:18 PM Age: 39 years old Clinical indication: Condition or disease; Convulsions or seizures; Unspecified; Additional info: Seizure, closed head injury with loss of consciousness. TECHNIQUE: Imaging protocol: Computed tomography of the head without contrast. Total DLP: 759.33 mGy-cm Radiation optimization: All CT scans at this facility use at least one of these dose optimization techniques: automated exposure control; mA and/or kV adjustment per patient size (includes targeted exams where dose is matched to clinical indication); or iterative reconstruction. COMPARISON: CT head wo con* [id number] 04/22/2019 12:03 AM FINDINGS: Brain: Normal. No hemorrhage. Unremarkable white matter. No mass effect. Ventricles: Normal. No ventriculomegaly. Bones/joints: Unremarkable. No acute fracture. Sinuses: Visualized sinuses are unremarkable. No fluid levels. Mastoid air cells: Visualized mastoid air cells are well aerated. Soft tissues: Left parietal scalp contusion. CT/CT head wo con* [id number] IMPRESSION: 1. No acute intracranial abnormality. 2. Left parietal scalp contusion. Radiation Dose CTDIVOL = (mGy): DLP = 759.33 (mGy-cm) Dictated By: Jeancarlos Melgar Signed By: Jeancarlos Melgar Signed Date/Time: 07/05/191913 DD/ 11 Discharge Plan Discharge Patient Disposition: Home, Self-Care Clinical Impression: Generalized seizure Condition: Stable Prescriptions: New Keppra 500 mg tablet 500 mg PO Q12H 14 Days Qty: 28 RF: 0 No Action lorazepam [Ativan] 0.5 mg tablet 0.5 mg PO QDAY PRNRF: 0 albuterol sulfate [ProAir HFA] 90 mcg/actuation HFA aerosol inhaler 2 puff INHALATION Q6H PRN (Reason: shortness of breath or wheezing) Qty: 8.5 RF: 0 Tylenol PM Extra Strength 25-500 mg Tablet 2 tab PO BEDTIME RF: 0 Discharge Orders: Discharge Order (Routine); Ordered 07/05/19 Ordered By: Emily Sahu Referrals: Kathryn Bruno MD [Physician] - 4-7 days Sharonda Cho DO [Physician] - 4-7 days Discharge Diet: Advance as tolerated Discharge Activity: Resume usual activity Patient Instructions: Epilepsy (ED) Activity Restrictions/Additional Instructions: Please return to the ER immediately for any of the signs or symptoms listed on your discharge instruction sheets, worsening/changing of your symptoms, you are not getting better as quickly as expected, or for ANY other cause or concerns. No driving, no working at heights, no tub baths, no swimming alone or anything else that would put you at risk should you have another seizure. Discharge Date/Time: 07/05/19 20:57 Sign Out Sign Out Data: Patient Sign Out occurred on 07/05/19 at 18:12. Patient's care was discussed, and care was transferred from Jm Mclean DO to Emily Sahu. Sign Out Comment: hx seizures, seizure at noon today, hit head. GIven Keppra. Labs/CT head pending Last updated by Jm Mclean DO at 07/05/19 18:11 Coding Level of Care Code ED Council Member for Chg Victorino
--- NOTE | 2019-07-05 17:15 | CTR_ITS ---
PROCEDURE INFORMATION: Exam: CT Head Without Contrast Exam date and time: 07/05/2019 5:18 PM Age: 39 years old Clinical indication: Condition or disease; Convulsions or seizures; Unspecified; Additional info: Seizure, closed head injury with loss of consciousness. TECHNIQUE: Imaging protocol: Computed tomography of the head without contrast. Total DLP: 759.33 mGy-cm Radiation optimization: All CT scans at this facility use at least one of these dose optimization techniques: automated exposure control; mA and/or kV adjustment per patient size (includes targeted exams where dose is matched to clinical indication); or iterative reconstruction. COMPARISON: CT head wo con* [id number] 04/22/2019 12:03 AM FINDINGS: Brain: Normal. No hemorrhage. Unremarkable white matter. No mass effect. Ventricles: Normal. No ventriculomegaly. Bones/joints: Unremarkable. No acute fracture. Sinuses: Visualized sinuses are unremarkable. No fluid levels. Mastoid air cells: Visualized mastoid air cells are well aerated. Soft tissues: Left parietal scalp contusion. CT/CT head wo con* [id number] IMPRESSION: 1. No acute intracranial abnormality. 2. Left parietal scalp contusion. Radiation Dose CTDIVOL = (mGy): DLP = 759.33 (mGy-cm)
--- NOTE | 2019-07-05 17:48 | PC.NURSE ---
Patient to restroom with hydrology technician
[2019-07-05 17:57] LABS: Basophils # 0.1 10^3/uL (0.0-0.1); Basophils % 0.4 %; Eosinophils # 0.1 10^3/uL (0.0-0.8); Eosinophils % 0.5 %; Hematocrit 36.6 % (37.0-47.0); Hemoglobin 12.3 g/dL (11.5-15.3); Lymphocytes # 1.4 10^3/uL (0.8-4.8); Lymphocytes % 11.3 %; Mean Corpuscular HGB Conc 33.6 g/dL (30.0-36.0); Mean Corpuscular Hemoglobin 33.2 pg (28.0-34.0); Mean Corpuscular Volume 98.7 fL (81-99); Mean Platelet Volume 11.4 fL (7.4-10.4); Monocytes # 0.7 10^3/uL (0.2-0.9); Monocytes % 5.4 %; Neutrophils # 9.9 10^3/uL (1.8-7.7); Neutrophils % 82.1 %; Nucleated Red Blood Cells % 0 %; Platelet Count 211 10^3/cmm (130-400); Red Blood Count 3.71 10^6/uL (4.1-5.3); Red Cell Distribution Width 15.8 % (12.1-15.1); White Blood Count 12.1 10^3/uL (4.0-10.0)
[2019-07-05 18:10] LABS: Slide Review Slide Review Perform
[2019-07-05 18:29] LABS: Protein Urine 1+ (Negative); Specific Gravity, Urine 1.025 (1.005-1.030); Urine Appearance Turbid (CLEAR); Urine Color Brown (Yellow); pH Urine 5 (5-7)
[2019-07-05 18:30] LABS: Add Urine Microscopic? YES; Bilirubin Urine 1+ (NEGATIVE); Blood Urine Neg (Negative); Glucose Urine UA Norm (Normal); HCG Qualitative Urine. Negative (Negative); Ketones Urine 1+ (Negative); Leukocyte Esterase Urine Trace (Negative); Nitrate Urine Negative (Negative); Urobilinogen Urine 1 mg/dL (Negative)
[2019-07-05 18:36] LABS: Bacteria Urine 4+; Fine Granular Casts Urine 0-4 /lpf; Hyaline Casts Urine 0-4; Mucus Urine 1+; RBC Urine 0-4 /hpf (0-2); Squamous Epithelial Cell Urine 0-4 (0-5); WBC Urine 0-4 /hpf (0-5)
[2019-07-05 18:47] LABS: Amphetamines Screen Urine Negative (Negative); Barbiturates Screen Urine Negative (Negative); Benzodiazepines Screen Urine Negative (Negative); Cocaine Screen Urine Negative (Negative); Opiate Screen Urine Negative (Negative); PCP Screen Urine Negative (Negative); THC Screen Urine Positive (Negative)
[2019-07-05 19:10] LABS: Alanine Aminotransferase 15 U/L (0-33); Albumin Level 4.9 g/dL (3.5-5.2); Alkaline Phosphatase 97 IU/L (35-105); Anion Gap 17.8 (5-19); Aspartate Amino Transferase 39 U/L (0-32); Blood Urea Nitrogen 14 mg/dL (6-20); Calcium 10.3 mg/dL (8.5-10.5); Carbon Dioxide 23 mmol/L (22-29); Chloride 95 mmol/L (98-107); Creatine Phosphokinase 119 U/L (26-192); Globulin 2.6 g/dL (1.3-4.6); Glomerular Filtration Rate 111.9 mL/min (90-130); Glucose 105 mg/dL (74-109); Sodium 133 mmol/L (136-145); Total Bilirubin 1.7 mg/dL (0.15-1.2); Total Protein 7.5 g/dL (6.6-8.7)
[2019-07-05 19:12] LABS: Acetaminophen < 5.0 ug/mL (10-30); Salicylate < 0.3 mg/dL (3-10)
[2019-07-05 19:13] LABS: Alcohol Level < 10 mg/dL (0-10); Potassium 2.8 mmol/L (3.5-5.1)
[2019-07-05 19:37] LABS: Magnesium 1.6 mg/dL (1.7-2.3)
[2019-07-05] MEDS: magnesium oxide 400 mg tablet PO (19:45)
[2019-07-05] MEDS: LORazepam 1 mg Tablet PO (19:48)
[2019-07-05 20:56] VITALS: BP 128/93; PULSE 81; RESP 16; O2SAT 95
--- NOTE | 2019-07-07 13:17 | DCPLANNER ---
division sales manager had message to speak with patient about a getting established with a primary care physician, and a follow up appointment for patient with Dr. Bruno. division sales manager called patients phone number of [phone]. division sales manager got a recording that stated the phone number is no longer in service. division sales manager will send patient a letter asking patient to call case liner about follow up appointments.
== END 2019-07-05 20:57 | disposition home or self-care (01) ==
PROVIDERS: Family Medicine; Emergency Provider Emergency Medicine
DX: G40.89 Other seizures (principal); F17.210 Nicotine dependence, cigarettes, uncomplicated
CPT/HCPCS: 36415; 70450; 80053; 80307; 81001; 81025; 82550; 83735; 85025; 99282; J1953

== ENCOUNTER 2019-08-29 01:24 | Emergency (ER) | payer SELFPAY ==
[2019-08-29 01:24] VITALS: BP 150/98; PULSE 112; RESP 24; TEMP 36.7; O2SAT 100
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
--- NOTE | 2019-08-29 01:34 | XR_ITS ---
WS: [id number] XR wrist LT min 3V* [id number] REASON FOR EXAM: INJURY/PAIN FINDINGS: A linear deformity is seen in the radius suggesting a nondisplaced fracture. The remaining ulna radius were normal. The positioning is satisfactory. The carpal bones are normal. XR/XR wrist LT min 3V* [id number] IMPRESSION: Nondisplaced fracture of the radius
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
--- NOTE | 2019-08-29 01:35 | XR_ITS ---
WS: [id number] XR chest 1V portable [id number] REASON FOR EXAM: cough FINDINGS: The left rib cage show no definite fracture single frontal view. The heart mediastinum were normal. The lung sanches are well aerated. No pneumonia, pleural effusion, pulmonary edema, pneumothorax, or m ass effect. The hilum and apices normal. No osseous abnormalities. XR/XR chest 1V portable [id number] IMPRESSION: Negative chest for active pathology The left rib cage show no definite fractures.
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
[2019-08-29] MEDS: morphine 4 mg/mL SDV 1 mL IVP (01:43)
[2019-08-29] MEDS: ondansetron 2 mg/ML SDV 2 mL 4 MG IVP (01:44)
[2019-08-29 01:46] VITALS: RESP 18; TEMP 36.4; BMI 22.6
[2019-08-29 01:54] LABS: Basophils # 0.1 10^3/uL (0.0-0.1); Basophils % 0.6 %; Eosinophils % 0.1 %; HCG, Serum Qual Negative (Negative); Hematocrit 44.6 % (37.0-47.0); Hemoglobin 15.3 g/dL (11.5-15.3); Lymphocytes # 1.7 10^3/uL (0.8-4.8); Lymphocytes % 16.6 %; Mean Corpuscular HGB Conc 34.3 g/dL (30.0-36.0); Mean Corpuscular Hemoglobin 32.7 pg (28.0-34.0); Mean Corpuscular Volume 95.3 fL (81-99); Mean Platelet Volume 9.2 fL (7.4-10.4); Monocytes # 0.5 10^3/uL (0.2-0.9); Monocytes % 5.2 %; Neutrophils # 7.9 10^3/uL (1.8-7.7); Nucleated Red Blood Cells % 0 %; Platelet Count 437 10^3/cmm (130-400); Red Blood Count 4.68 10^6/uL (4.1-5.3); Red Cell Distribution Width 16.3 % (12.1-15.1); White Blood Count 10.2 10^3/uL (4.0-10.0)
[2019-08-29 02:05] LABS: Alanine Aminotransferase 17 U/L (0-33); Albumin Level 5.7 g/dL (3.5-5.2); Alkaline Phosphatase 113 IU/L (35-105); Anion Gap 23.4 (5-19); Aspartate Amino Transferase 61 U/L (0-32); Blood Urea Nitrogen 9 mg/dL (6-20); Calcium 10.7 mg/dL (8.5-10.5); Carbon Dioxide 22 mmol/L (22-29); Chloride 94 mmol/L (98-107); Globulin 3.3 g/dL (1.3-4.6); Glomerular Filtration Rate 93.6 mL/min (90-130); Glucose 127 mg/dL (65-115); Osmolality Calculated 280 mOsm/kg (285-295); Potassium 3.4 mmol/L (3.5-5.1); Sodium 136 mmol/L (136-145); Total Bilirubin 1.2 mg/dL (0.15-1.2)
[2019-08-29] MEDS: iohexol 300 mg/mL 100 mL Btl IV (02:24)
[2019-08-29 03:03] VITALS: RESP 20
[2019-08-29] MEDS: sodium chloride 0.9% 1,000 ML 999 ML IV ×2 (03:03→03:44)
[2019-08-29] MEDS: HYDROmorphone 1 mg/mL INJ 1 mL 0.5 MG IVP ×2 (03:03→04:40)
[2019-08-29 04:10] LABS: Amphetamines Screen Urine Positive (Negative); Barbiturates Screen Urine Negative (Negative); Benzodiazepines Screen Urine Negative (Negative); Cocaine Screen Urine Negative (Negative); Opiate Screen Urine Positive (Negative); PCP Screen Urine Negative (Negative); THC Screen Urine Positive (Negative)
[2019-08-29] MEDS: ketorolac 30 mg/mL INJ 15 MG IVP (04:40)
[2019-08-29 04:49] VITALS: BP 142/84; PULSE 86; RESP 20; O2SAT 98
[2019-08-29 04:50] VITALS: BP 142/88; PULSE 88; RESP 20
[2019-08-29 05:32] LABS: Bacteria Urine 1+; Bilirubin Urine Neg (NEGATIVE); Blood Urine 2+ (Negative); Glucose Urine UA Norm (Normal); Hyaline Casts Urine 0-4; Ketones Urine Negative (Negative); Leukocyte Esterase Urine Negative (Negative); Nitrate Urine Negative (Negative); Protein Urine 3+ (Negative); RBC Urine 0-4 /hpf (0-2); Specific Gravity, Urine 1.005 (1.005-1.030); Urine Appearance Clear (CLEAR); Urine Color Yellow (Yellow); Urobilinogen Urine Norm (Negative); WBC Urine 0-4 /hpf (0-5); pH Urine 5 (5-7)
--- NOTE | 2019-08-30 14:50 | DCPLANNER ---
account relationship manager had message to schedule a follow up appointment for patient with ortho. account relationship manager called ortho, spoke with Pat, gave clinic patients information. account relationship manager was told that patients information would be printed and reviewed. Clinic will call case making machine operator and patient with appointment information.
--- NOTE | 2019-09-03 08:41 | DCPLANNER ---
Patient had an appointment scheduled for 08.31.19 with ortho, patient did attend the appointment.
== END 2019-08-29 04:52 | disposition home or self-care (01) ==
PROVIDERS: Emergency Provider Emergency Medicine
DX: S52.92XA Unspecified fracture of left forearm, initial encounter for closed fracture (principal); S22.42XA Multiple fractures of ribs, left side, initial encounter for closed fracture; F17.200 Nicotine dependence, unspecified, uncomplicated; V89.2XXA Person injured in unspecified motor-vehicle accident, traffic, initial encounter; Y92.410 Unspecified street and highway as the place of occurrence of the external cause
CPT/HCPCS: 12345; 29125; 70450; 71045; 71260; 72125; 72170; 73110; 74177; 80053; 80306; 81001; 83735; 84703; 85025; 96360; 96361; 96374; 96375; 96376; 99283; 99284; A9270; J0131; J1170; J1885; J2270; J2405; J7030; Q9967

== ENCOUNTER 2019-08-31 10:48 | Outpatient (CLI) | payer OTHER, SELFPAY | END 2019-08-31 10:49 | disposition home or self-care (01) | LOC: SPT 10:50 → SOT 11:57 | PROVIDERS: Visit Provider Orthopaedic Surgery | DX: S52.532D Colles' fracture of left radius, subsequent encounter for closed fracture with routine healing (principal); X58.XXXD Exposure to other specified factors, subsequent encounter | CPT/HCPCS: L3982 ==

== ENCOUNTER → 2019-10-07 11:44 | Outpatient (BNVA) | payer SELFPAY | PROVIDERS: Visit Provider Orthopaedic Surgery | DX: S52.532A Colles' fracture of left radius, initial encounter for closed fracture (principal) | CPT/HCPCS: 73110 ==

== ENCOUNTER 2021-08-28 13:33 | Emergency (ER) | payer MEDICAID, SELFPAY ==
[2021-08-28 13:40] VITALS: BP 139/91; PULSE 85; RESP 16; TEMP 36.4; O2SAT 100; BMI 23.3
[2021-08-28 13:54] VITALS: BP 139/91; PULSE 85; RESP 16; O2SAT 100
--- NOTE | 2021-08-28 14:03 | XRR_ITS ---
PROCEDURE INFORMATION: Exam: XR Cervical Spine Exam date and time: 08/28/2021 2:11 PM Age: 41 years old Clinical indication: Neck pain; Additional info: Pain, paresthesias TECHNIQUE: Imaging protocol: XR of the cervical spine. Views: 2 or 3 views. COMPARISON: CT cervical spin wo con* [id number] 08/29/2019 2:21 AM FINDINGS: Bones/joints: No acute fracture. Normal alignment. 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 Soft tissues: Unremarkable. XR/XR cervical spine 3V* [id number] IMPRESSION: Mild DJD of the mid and lower cervical spine.
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
[2021-08-28] MEDS: ketorolac 60 mg/2 mL INJ IM (14:23)
[2021-08-28] MEDS: orphenadrine 30 mg/mL Inj 2 mL 60 MG IM (14:24)
--- NOTE | 2021-08-29 10:44 | DCPLANNER ---
data center project manager had message to speak with patient about getting established with a primary care physician. data center project manager called -phone number -[phone], unable to speak with patient at this time. data center project manager left a voicemail for patient to return case fitter phone call.
== END 2021-08-28 15:34 | disposition home or self-care (01) ==
PROVIDERS: Emergency Provider Physician Assistant
DX: G89.29 Other chronic pain (principal); M54.2 Cervicalgia; F17.210 Nicotine dependence, cigarettes, uncomplicated
CPT/HCPCS: 72040; 96372; 99283; J1885; J2360

== ENCOUNTER 2021-10-06 15:33 | Emergency (ER) | payer MEDICAID, SELFPAY ==
[2021-10-06 15:39] VITALS: BP 158/98; PULSE 80; RESP 22; TEMP 36.3; O2SAT 100; BMI 24.2
[2021-10-06 16:02] LABS: Basophils # 0.1 10^3/uL (0.0-0.1); Basophils % 0.8 %; Eosinophils # 0.1 10^3/uL (0.0-0.8); Hemoglobin 14.5 g/dL (11.5-15.3); Lymphocytes # 2.8 10^3/uL (0.8-4.8); Lymphocytes % 26.6 %; Mean Corpuscular Hemoglobin 29.1 pg (28.0-34.0); Mean Corpuscular Volume 88.4 fl (81-99); Mean Platelet Volume 9.4 fL (7.4-10.4); Monocytes # 0.9 10^3/uL (0.2-0.9); Monocytes % 8.2 %; Neutrophils # 6.71 10^3/uL (1.8-7.7); Nucleated Red Blood Cells % 0 %; Platelet Count 510 10^3/cmm (130-400); Red Blood Count 4.98 10^6/uL (4.1-5.3); Red Cell Distribution Width 13.8 % (12.1-15.1); White Blood Count 10.6 10^3/uL (4.0-10.0)
--- NOTE | 2021-10-06 16:03 | CTR_ITS ---
PROCEDURE INFORMATION: Exam: CT Abdomen And Pelvis With Contrast Exam date and time: 10/06/2021 4:35 PM Age: 41 years old Clinical indication: Abdominal pain; Localized; Lower; Additional info: Lower abd pain TECHNIQUE: Imaging protocol: Computed tomography of the abdomen and pelvis with contrast. Radiation optimization: All CT scans at this facility use at least one of these dose optimization techniques: automated exposure control; mA and/or kV adjustment per patient size (includes targeted exams where dose is matched to clinical indication); or iterative reconstruction. Contrast material: OMNI 300; Contrast volume: 95 ml; Contrast route: INTRAVENOUS (IV); COMPARISON: CT chest abd pel w con* 08/29/2019 2:26 AM RADIATION DOSE METRICS: Total DLP (mGy-cm): 1095.63 FINDINGS: Liver: There is no focal abnormality within the liver. Gallbladder and bile ducts: The gallbladder is normal. The gallbladder is normal. Pancreas: The pancreas is normal. Spleen: The spleen is normal. Adrenal glands: The adrenal glands are normal. Kidneys and ureters: The kidneys are normal. There is no evidence of hydronephrosis. There is no evidence of renal or ureteral calcifications. Stomach and bowel: There is no evidence of colitis/diverticulitis. There is no evidence of intestinal obstruction. Appendix: A normal appendix is identified. Intraperitoneal space: Unremarkable. No free air. No significant fluid collection. Vasculature: The aorta demonstrates mild atherosclerotic calcification. There is no evidence of an abdominal aortic aneurysm. Lymph nodes: There is no evidence of lymphadenopathy. Urinary bladder: Unremarkable as visualized. Reproductive: 2 cm simple appearing left ovarian cyst. Bones/joints: Unremarkable. No acute fracture. Soft tissues: Unremarkable. CT/CT abdomen pelvis w con* [id number] IMPRESSION: No acute findings. No significant change from 08/29/2019
[2021-10-06] MEDS: diphenhydrAMINE 50 mg/mL SDV 1mL IVP (16:11)
[2021-10-06] MEDS: famotidine 20 mg/2 mL INJ 40 MG IVP (16:11)
[2021-10-06 16:14] LABS: HCG Qualitative Urine. Negative (Negative)
[2021-10-06] MEDS: sodium chloride 0.9% 1,000 ML 999 ML IV ×2 (16:17→17:04)
--- NOTE | 2021-10-06 16:19 | W.ED.GENADLT ---
HPI - General Adult General: Chief complaint: Abdominal Pain Stated complaint: severe abd pains Time Seen by Provider: 10/06/21 15:45 History of Present Illness: Patient is a 41-year-old female with a history of tubal ligation presenting to the emergency room for evaluation of generalized pruritus, lower abdominal pain nausea vomiting diarrhea. Patient tells me that yesterday was the first time she drank alcohol and while. Since this morning, patient has had significant lower abdominal pain that is intermittent worsening. Patient tells me that she also had 1 episode of diarrhea shortly after eating breakfast this morning. Patient denies any fever or chills, reports multiple episodes of vomiting. Patient denies any melena or hematochezia. Patient has no urinary complaints or new vaginal discharge. Patient reports that she uses marijuana regularly and took marijuana yesterday night. Patient denies any prior history of hyperemesis. Onset:1 day ago Duration:ongoing Location:home Severity:moderate Associated symptoms: Reports nausea and vomiting; Deny chest pain, dyspnea, rash or palpitations Review of Systems Const: Denies: fever(s) or chills Eyes: Denies: change in vision ENMT: Denies: mouth pain Card: Denies: chest pain or palpitations Resp: Denies: dyspnea or non-productive cough GI: Reports: abdominal pain, nausea, vomiting and diarrhea : Denies: dysuria Musc: Denies: extremity pain Skin/Breast: Reports: pruritus; Denies: rash or new lesions Neuro: Denies: weakness in extremities Psych: Reports: other (Normal mood) Christiano/Lymph: Denies: easy bruising PFS ED PFSH: Surgical History (Updated 10/06/21 @ 16:20 by Elmer Salcido MD) H/O tubal ligation Social History Smoking and tobacco status: current every day smoker Alcohol intake: current Female Reproductive History: Date of last menstrual period: 10/06/21 Physical Exam Const: COMMON NORMALS: alert HENMT: COMMON NORMALS: atraumatic HEAD & SCALP: atraumatic MOUTH: moist mucous membranes not abnormal Eye: COMMON NORMALS: EOMs intact bilaterally and conjunctivae normal CONJUNCTIVA: Yes conjunctivae normal Neck/C-Spine: COMMON NORMALS: full ROM and supple Resp: COMMON NORMALS: normal respiratory effort and clear to auscultation bilaterally AUSCULTATION: clear to auscultation bilaterally Cardio: COMMON NORMALS: regular rate RATE: regular rate GI: COMMON NORMALS: Soft to palpation PALPATION: Yes Soft to palpation OTHER: +lower focal TTP in the hypogastric area. NO guarding rebound, guarding, rigidity. No CVA tenderness to percussion. Neg Somers/Neg McBurney's point tenderness, no suprabupic tenderness to palpation. Extremity: COMMON NORMALS: full ROM Neuro: SENSORIUM/ORIENTATION: Yes alert MOTOR EXAM: No Abnormal motor strength present and Other motor observations present (no focal motor deficits) Psych: COMMON NORMALS: speech normal SPEECH: Yes normal speech MOOD & AFFECT: Yes euthymic mood Course Vital Signs: Vital signs: Vital Signs Temperature 97.4 F L 10/06/21 15:39 Pulse Rate 72 10/06/21 19:54 Respiratory Rate 16 10/06/21 19:54 Blood Pressure 147/86 10/06/21 19:54 Pulse Oximetry 99 10/06/21 19:54 [facility] - General Adult Medical Decision Making 41-year-old female with a history of tubal ligation presenting to the emergency room with lower abdominal pain nausea vomiting diarrhea. On exam, patient with mild tenderness palpation of lower abdomen. Patient has no guarding or rebound tenderness. WBC 10.6. Rest of lab within normal limit. CT abdomen pelvis did not show any signs of focal pathology. Transvaginal ultrasound confirmed bilateral ovarian flow without any acute pathologies. UA negative for UTI. Patient received GI cocktail, morphine, IVF, Zofran reports significant abdominal pain improvement Rx tylenol PRN abd pain, maalox/pepcid PRN dyspepsia, and zofran PRN nausea/vomiting Disposition: Discharge. Patient counseled regarding diagnostic impression, treatment plan. Patient given ED strict return precautions to return for continuation, worsening, or development of new symptoms. Instructed to f/u w/ PCP regarding symptoms today. Patient verbalized understanding. Lab Data : 10/06/21 15:50 10/06/21 15:50 Radiology Impressions Abdomen/Pelvis CT 10/06/21 16:03 IMPRESSION: No acute findings. No significant change from 08/29/2019 Transvaginal US 10/06/21 17:21 IMPRESSION: 1. Basically unremarkable transvaginal ultrasound of pelvis. 2. Small simple left ovarian cyst. Laboratory Results WBC 10.6 10^3/uL (4.0-10.0) H 10/06/21 15:50 RBC 4.98 10^6/uL (4.1-5.3) 10/06/21 15:50 Hgb 14.5 g/dL (11.5-15.3) 10/06/21 15:50 Hct 44.0 % (37.0-47.0) 10/06/21 15:50 MCV 88.4 fl (81-99) 10/06/21 15:50 MCH 29.1 pg (28.0-34.0) 10/06/21 15:50 MCHC 33.0 g/dL (30.0-36.0) 10/06/21 15:50 RDW 13.8 % (12.1-15.1) 10/06/21 15:50 Plt Count 510 10^3/cmm (130-400) H 10/06/21 15:50 MPV 9.4 fL (7.4-10.4) 10/06/21 15:50 Neut % (Auto) 63.0 % 10/06/21 15:50 Lymph % (Auto) 26.6 % 10/06/21 15:50 [place] % (Auto) 8.2 % 10/06/21 15:50 Eos % (Auto) 1.0 % 10/06/21 15:50 Baso % (Auto) 0.8 % 10/06/21 15:50 Neut # (Auto) 6.71 10^3/uL (1.8-7.7) 10/06/21 15:50 Lymph # (Auto) 2.8 10^3/uL (0.8-4.8) 10/06/21 15:50 [place] # (Auto) 0.9 10^3/uL (0.2-0.9) 10/06/21 15:50 Eos # (Auto) 0.1 10^3/uL (0.0-0.8) 10/06/21 15:50 Baso # (Auto) 0.1 10^3/uL (0.0-0.1) 10/06/21 15:50 Nucleated RBC % (auto) 0 % 10/06/21 15:50 Nucleated RBCs # 0.0 /100WBC 10/06/21 15:50 Sodium 135 mmol/L (136-145) L 10/06/21 15:50 Potassium 3.6 mmol/L (3.5-5.1) 10/06/21 15:50 Chloride 97 mmol/L (98-107) L 10/06/21 15:50 Carbon Dioxide 24 mmol/L (22-29) 10/06/21 15:50 Anion Gap 17.6 (5-19) 10/06/21 15:50 BUN 12 mg/dL (6-20) 10/06/21 15:50 Creatinine 0.7 mg/dL (0.5-0.9) 10/06/21 15:50 GFR Calculation 92.7 mL/min (90-130) 10/06/21 15:50 Glucose 104 mg/dL (65-115) 10/06/21 15:50 Calculated Osmolality 280 mOsm/kg (285-295) L 10/06/21 15:50 Lactate 1.4 mmol/L (0.5-2.2) 10/06/21 16:50 Calcium 9.7 mg/dL (8.5-10.5) 10/06/21 15:50 Total Bilirubin 0.3 mg/dL (0.15-1.2) 10/06/21 15:50 AST 18 U/L (0-32) 10/06/21 15:50 ALT 13 U/L (0-33) 10/06/21 15:50 Alkaline Phosphatase 107 IU/L (35-105) H 10/06/21 15:50 Total Protein 8.2 g/dL (6.6-8.7) 10/06/21 15:50 Albumin 4.9 g/dL (3.5-5.2) 10/06/21 15:50 Globulin 3.3 g/dL (1.3-4.6) 10/06/21 15:50 Lipase 25 U/L (13-60) 10/06/21 15:50 HCG, Qual Negative (Negative) 10/06/21 15:50 Urine Color Red (Yellow) 10/06/21 15:50 Urine Appearance Turbid (CLEAR) 10/06/21 15:50 Urine pH 5 (5-7) 10/06/21 15:50 Ur Specific [place] 1.020 (1.005-1.030) 10/06/21 15:50 Urine Protein 3+ (Negative) H 10/06/21 15:50 Urine Glucose (UA) Norm (Normal) 10/06/21 15:50 Urine Ketones 1+ (Negative) H 10/06/21 15:50 Urine Blood 4+ (Negative) H 10/06/21 15:50 Urine Nitrate Positive (Negative) H 10/06/21 15:50 Urine Bilirubin 1+ (Negative) H 10/06/21 15:50 Urine Urobilinogen 1 mg/dL (Negative) H 10/06/21 15:50 Ur Leukocyte Esterase 1+ (Negative) H 10/06/21 15:50 Urine RBC Too numerous to cnt /hpf (0-2) H 10/06/21 15:50 Urine WBC 25-40 /hpf (0-5) H 10/06/21 15:50 Ur Squamous Epith Cells 5-10 /hpf (0-5) H 10/06/21 15:50 Amorphous Sediment Not Reportable 10/06/21 15:50 Urine Bacteria 2+ /hpf (NONE) H 10/06/21 15:50 Imaging Data Other Imaging: Radiologist's impression: [employer] [place] [address] CT Scan Report Signed Patient: Christine Marr Unit #: [id number] : 1980 Age/Sex: 41 / F ADM Date: 10/06/21 Loc: ER Room/Bed: Attending Dr: Ordering Provider/Ordering MD: Elmer Salcido MD Date of Service: 10/06/21 Procedure(s): CT abdomen pelvis w con* [id number] Accession Number(s): [id number] Report Number: [id number] PROCEDURE INFORMATION: Exam: CT Abdomen And Pelvis With Contrast Exam date and time: 10/06/2021 4:35 PM Age: 41 years old Clinical indication: Abdominal pain; Localized; Lower; Additional info: Lower abd pain TECHNIQUE: Imaging protocol: Computed tomography of the abdomen and pelvis with contrast. Radiation optimization: All CT scans at this facility use at least one of these dose optimization techniques: automated exposure control; mA and/or kV adjustment per patient size (includes targeted exams where dose is matched to clinical indication); or iterative reconstruction. Contrast material: OMNI 300; Contrast volume: 95 ml; Contrast route: INTRAVENOUS (IV);? COMPARISON: CT chest abd pel w con* 08/29/2019 2:26 AM RADIATION DOSE METRICS: Total DLP (mGy-cm): 1095.63 FINDINGS: Liver: There is no focal abnormality within the liver. Gallbladder and bile ducts: The gallbladder is normal. The gallbladder is normal. Pancreas: The pancreas is normal. Spleen: The spleen is normal. Adrenal glands: The adrenal glands are normal. Kidneys and ureters: The kidneys are normal. There is no evidence of hydronephrosis. There is no evidence of renal or ureteral calcifications. Stomach and bowel: There is no evidence of colitis/diverticulitis. There is no evidence of intestinal obstruction. Appendix: A normal appendix is identified. Intraperitoneal space: Unremarkable. No free air. No significant fluid collection. Vasculature: The aorta demonstrates mild atherosclerotic calcification. There is no evidence of an abdominal aortic aneurysm. Lymph nodes: There is no evidence of lymphadenopathy. Urinary bladder: Unremarkable as visualized. Reproductive: 2 cm simple appearing left ovarian cyst. Bones/joints: Unremarkable. No acute fracture. Soft tissues: Unremarkable. CT/CT abdomen pelvis w con* [id number] IMPRESSION: No acute findings. No significant change from 08/29/2019 ? Dictated By: Adán Jackson Signed By: Adán Jackson Signed Date/Time: 10/06/21 1708 DD/ [address] [address] Ultrasound Report Signed Patient: Christine Marr Unit #: [id number] : 1980 Age/Sex: 41 / F ADM Date: 10/06/21 Loc: ER Room/Bed: Attending Dr: Ordering Provider/Ordering MD: Elmer Salcido MD Date of Service: 10/06/21 Procedure(s): US transvaginal [id number] Accession Number(s): [id number] Report Number: [id number] PROCEDURE INFORMATION: Exam: US Pelvis, Transvaginal Exam date and time: 10/06/2021 6:33 PM Age: 41 years old Clinical indication: Abdominal pain; Lower abdomen; Additional info: Lower abd pain TECHNIQUE: Imaging protocol: Real-time transvaginal pelvic ultrasound with image documentation. Transvaginal imaging was used for better evaluation of the endometrium, adnexa, and/or cervix. COMPARISON: CT abdomen pelvis w con* [id number] 10/06/2021 4:35 PM FINDINGS: Uterus: Uterus measures 7.6 x 3.9 x 5.4 cm. Endometrium is 3 mm in thickness. Right ovary/adnexa: Right ovary measures 2.7 x 1.2 x 1.4 cm. There is normal Doppler flow in the right ovary. Left ovary/adnexa: Left ovary measures 3.4 x 2.3 x 2.6 cm. There is a 1.6 cm size simple cyst or follicle in the left ovary. There is normal Doppler flow in the left ovary. Intraperitoneal space: No free fluid. US/US transvaginal [id number] IMPRESSION: 1. Basically unremarkable transvaginal ultrasound of pelvis. 2. Small simple left ovarian cyst. ? Dictated By: Adán Jackson Signed By: Adán Jackson Signed Date/Time: 10/06/211909 DD/ 32 Discharge Plan Discharge Patient Disposition: Home Clinical Impression: Abdominal pain, Nausea & vomiting, Diarrhea Condition: Stable Prescriptions: New Pepcid 20 mg tablet 20 mg PO BID PRN (Reason: abdominal pain) 10 Days Qty: 20 0RF No Action sulfamethoxazole-trimethoprim [Bactrim DS] 800-160 mg tablet 1 tab PO BID 7 Days Qty: 14 0RF mupirocin 2 % ointment 1 applic topical BID Qty: 22 0RF cyclobenzaprine 10 mg tablet 10 mg PO TID Qty: 14 0RF diclofenac sodium 50 mg tablet,delayed release (DR/EC) 50 mg PO Q12H PRN (Reason: pain) Qty: 20 0RF Medrol ([place]) 4 mg tablets,dose pack See Rx Instructions .ROUTE .COMPLEX Qty: 21 0RF Rx Instructions: orally per package directions Discharge Orders: Discharge ED (Routine); Ordered 10/06/21 Ordered By: Elmer Salcido Referrals: Zeeshan Rivera [Primary Care Provider] - Discharge Diet: Advance as tolerated Discharge Activity: Increase activity as tolerated Patient Instructions: Abdominal Pain (ED) Activity Restrictions/Additional Instructions: Please come back if you have any worsening abdominal pain, fever or chills, nausea or vomiting, diarrhea, blood in the stool, inability hold down liquid or solids, or any new concerning complaints. Please return if you develop continued nausea, vomiting, or develop fevers, chills, abdominal pain, abdominal pain that is in the lower right side of your abdomen, or any other concerning signs or symptoms. Stand Alone Forms: Work/School Release Coding Level of Care Code ED Brass Finisher for Chg Fwd Exam Comprehensive
[2021-10-06 16:30] LABS: Alanine Aminotransferase 13 U/L (0-33); Albumin Level 4.9 g/dL (3.5-5.2); Alkaline Phosphatase 107 IU/L (35-105); Anion Gap 17.6 (5-19); Aspartate Amino Transferase 18 U/L (0-32); Blood Urea Nitrogen 12 mg/dL (6-20); Calcium 9.7 mg/dL (8.5-10.5); Carbon Dioxide 24 mmol/L (22-29); Chloride 97 mmol/L (98-107); Creatinine Clr Calc Pharmacy 105.9053; Globulin 3.3 g/dL (1.3-4.6); Glomerular Filtration Rate 92.7 mL/min (90-130); Glucose 104 mg/dL (65-115); Lipase 25 U/L (13-60); Osmolality Calculated 280 mOsm/kg (285-295); Potassium 3.6 mmol/L (3.5-5.1); Sodium 135 mmol/L (136-145); Total Bilirubin 0.3 mg/dL (0.15-1.2); Total Protein 8.2 g/dL (6.6-8.7)
[2021-10-06] MEDS: iohexol 300 mg/mL 100 mL Btl IV (16:35)
[2021-10-06 17:12] LABS: Lactate (Lactic Acid level) 1.4 mmol/L (0.5-2.2)
--- NOTE | 2021-10-06 17:21 | USR_ITS ---
PROCEDURE INFORMATION: Exam: US Pelvis, Transvaginal Exam date and time: 10/06/2021 6:33 PM Age: 41 years old Clinical indication: Abdominal pain; Lower abdomen; Additional info: Lower abd pain TECHNIQUE: Imaging protocol: Real-time transvaginal pelvic ultrasound with image documentation. Transvaginal imaging was used for better evaluation of the endometrium, adnexa, and/or cervix. COMPARISON: CT abdomen pelvis w con* [id number] 10/06/2021 4:35 PM FINDINGS: Uterus: Uterus measures 7.6 x 3.9 x 5.4 cm. Endometrium is 3 mm in thickness. Right ovary/adnexa: Right ovary measures 2.7 x 1.2 x 1.4 cm. There is normal Doppler flow in the right ovary. Left ovary/adnexa: Left ovary measures 3.4 x 2.3 x 2.6 cm. There is a 1.6 cm size simple cyst or follicle in the left ovary. There is normal Doppler flow in the left ovary. Intraperitoneal space: No free fluid. US/US transvaginal [id number] IMPRESSION: 1. Basically unremarkable transvaginal ultrasound of pelvis. 2. Small simple left ovarian cyst.
[2021-10-06 17:36] VITALS: RESP 18
[2021-10-06] MEDS: lidocaine 2% viscous 15 ML, aluminum-mag hydrox-simethicon 30 ML, sucralfate oral liq 1 GM PO (17:36)
[2021-10-06] MEDS: morphine 4 mg/mL SDV 1 mL IVP (17:36)
[2021-10-06 19:02] VITALS: BP 121/77; PULSE 88; RESP 16; O2SAT 96
--- NOTE | 2021-10-06 19:20 | PC.NURSE ---
pt eating crackers and drinking without difficulty
[2021-10-06 19:22] VITALS: BP 147/86; PULSE 69; RESP 20; O2SAT 97
[2021-10-06 19:54] VITALS: BP 147/86; PULSE 72; RESP 16; O2SAT 99
[2021-10-06 21:15] LABS: Add Urine Microscopic? YES; Bilirubin Urine 1+ (Negative); Blood Urine 4+ (Negative); Glucose Urine UA Norm (Normal); Ketones Urine 1+ (Negative); Leukocyte Esterase Urine 1+ (Negative); Nitrate Urine Positive (Negative); Protein Urine 3+ (Negative); Urine Appearance Turbid (CLEAR); Urine Color Red (Yellow); Urobilinogen Urine 1 mg/dL (Negative); pH Urine 5 (5-7)
[2021-10-06 21:18] LABS: Add Urine Culture? Yes; Bacteria Urine 2+ /hpf; RBC Urine TOO NUMEROUS TO CNT /hpf (0-2); WBC Urine 25-40 /hpf (0-5)
== END 2021-10-06 19:54 | disposition home or self-care (01) ==
PROVIDERS: Emergency Medicine; Emergency Provider Emergency Medicine; PCP Family Medicine
DX: R10.9 Unspecified abdominal pain (principal); R11.2 Nausea with vomiting, unspecified; R19.7 Diarrhea, unspecified; F17.210 Nicotine dependence, cigarettes, uncomplicated
CPT/HCPCS: 74177; 76830; 80053; 81001; 81025; 83605; 83690; 85025; 87086; 96361; 96374; 96375; 99284; J1200; J2270; J3490; J7030; Q9967

== ENCOUNTER 2022-01-21 14:59 | Inpatient (IN) | payer MEDICAID, SELFPAY ==
[2022-01-21 15:56] VITALS: BP 142/98; PULSE 113; RESP 18; TEMP 37.6; O2SAT 98; BMI 22.6
--- NOTE | 2022-01-21 17:12 | W.ED.GENADLT ---
HPI - General Adult General: Chief complaint: Skin/Abscess/Foreign Body Stated complaint: Infection, SOB Time Seen by Provider: 01/21/22 17:07 History of Present Illness: Patient is a 41-year-old female with a history of recent meth use who was released from assisted on 01/17/2022 presenting to the emergency room with diffuse wound and suicidal ideation. Patient tells me that last time she used meth was 3 days ago. Since then, patient has noted diffuse wound on her body including her arms, her neck and the forehead. Patient also tells me that today she is feeling suicidal and has a plan. Patient does not want to monitor the plan. Patient's boyfriend is concerned the patient may go through with the plan. Patient denies any fever but reports chills. Reports diffuse pain over the wound sites throughout her body. Patient denies any prior history of IV drug use or endocarditis. Denies nausea/vomiting, fever/chill, chest pain, shortness of breath, abdominal pain, dysuria/hematuria/polyuria, diarrhea/melena/hematochezia. Onset:3 days ago Duration:3 days Location:home Severity:moderate Associated symptoms: Deny chest pain, dyspnea, nausea, palpitations or vomiting Review of Systems Const: Denies: fever(s) or chills Eyes: Denies: change in vision ENMT: Denies: mouth pain Card: Denies: chest pain or palpitations Resp: Denies: dyspnea or non-productive cough GI: Denies: abdominal pain, nausea, vomiting or diarrhea : Denies: dysuria Musc: Denies: extremity pain Skin/Breast: Reports: new lesions (+diffuse wounds everywehre) Neuro: Denies: weakness in extremities Psych: Reports: depression and suicidal ideation Christiano/Lymph: Denies: easy bruising PFSH ED PFSH: Medical History Polysubstance (excluding opioids) dependence Surgical History H/O tubal ligation Social History Smoking and tobacco status: current every day smoker Alcohol intake: current Substance/Drug Use: current Substance/Drug use type: Methamphetamine Female Reproductive History: Date of last menstrual period: 10/06/21 Physical Exam Const: COMMON NORMALS: alert HENMT: COMMON NORMALS: atraumatic HEAD & SCALP: atraumatic MOUTH: moist mucous membranes not abnormal Eye: COMMON NORMALS: EOMs intact bilaterally and conjunctivae normal CONJUNCTIVA: Yes conjunctivae normal Neck/C-Spine: COMMON NORMALS: full ROM and supple Resp: COMMON NORMALS: normal respiratory effort and clear to auscultation bilaterally AUSCULTATION: clear to auscultation bilaterally Cardio: COMMON NORMALS: regular rate RATE: regular rate GI: COMMON NORMALS: Soft to palpation and non-tender PALPATION: Yes Soft to palpation OTHER: No focal TTP. NO guarding rebound, guarding, rigidity. No CVA tenderness to percussion. Neg Somers/Neg McBurney's point tenderness, no suprabupic tenderness to palpation. Extremity: COMMON NORMALS: full ROM Neuro: SENSORIUM/ORIENTATION: Yes alert MOTOR EXAM: No Abnormal motor strength present and Other motor observations present (no focal motor deficits) Psych: COMMON NORMALS: speech normal SPEECH: Yes normal speech MOOD & AFFECT: Yes depressed mood Course Vital Signs: Vital signs: Vital Signs Temperature 99.6 F 01/21/22 15:56 Pulse Rate 113 H 01/21/22 15:56 Respiratory Rate 18 01/21/22 15:56 Blood Pressure 142/98 01/21/22 15:56 Pulse Oximetry 98 01/21/22 15:56 Oxygen Delivery Me thod 01/21/22 15:56 MDM - General Adult Medical Decision Making 41-year-old female with history of meth use recently released from assisted presenting to emergency with diffuse wounds and suicidal ideation. On physical exam, patient was noted to have diffuse infected wounds on the arms neck and forehead. Patient is hemodynamically stable. Patient did have white count 13.2 today. Patient received vancomycin and zosyn. On further questioning, patient report suicidal ideation and with plan. I discussed with Dr. Mclain who will follow the patient. Patient admitted to hospital for further work-up of diffuse wounds and possible bacteremia. Disposition: admission Lab Data : 01/21/22 16:50 01/21/22 16:50 Laboratory Results WBC 13.2 10^3/uL (4.0-10.0) H 01/21/22 16:50 RBC 4.96 10^6/uL (4.1-5.3) 01/21/22 16:50 Hgb 14.4 g/dL (11.5-15.3) 01/21/22 16:50 Hct 44.0 % (37.0-47.0) 01/21/22 16:50 MCV 88.7 fl (81-99) 01/21/22 16:50 MCH 29.0 pg (28.0-34.0) 01/21/22 16:50 MCHC 32.7 g/dL (30.0-36.0) 01/21/22 16:50 RDW 13.8 % (12.1-15.1) 01/21/22 16:50 Plt Count 424 10^3/cmm (130-400) H 01/21/22 16:50 MPV 9.6 fL (7.4-10.4) 01/21/22 16:50 Neut % (Auto) 79.2 % 01/21/22 16:50 Lymph % (Auto) 12.1 % 01/21/22 16:50 Woodson % (Auto) 7.6 % 01/21/22 16:50 Eos % (Auto) 0.5 % 01/21/22 16:50 Baso % (Auto) 0.4 % 01/21/22 16:50 Neut # (Auto) 10.47 10^3/uL (1.8-7.7) H 01/21/22 16:50 Lymph # (Auto) 1.6 10^3/uL (0.8-4.8) 01/21/22 16:50 Woodson # (Auto) 1.0 10^3/uL (0.2-0.9) H 01/21/22 16:50 Eos # (Auto) 0.1 10^3/uL (0.0-0.8) 01/21/22 16:50 Baso # (Auto) 0.1 10^3/uL (0.0-0.1) 01/21/22 16:50 Nucleated RBC % (auto) 0 % 01/21/22 16:50 Nucleated RBCs # 0.0 /100WBC 01/21/22 16:50 ESR 54 mm/hr (0-15) H 01/21/22 16:50 Sodium 130 mmol/L (136-145) L 01/21/22 16:50 Potassium 3.6 mmol/L (3.5-5.1) 01/21/22 16:50 Chloride 90 mmol/L (98-107) L 01/21/22 16:50 Carbon Dioxide 23 mmol/L (22-29) 01/21/22 16:50 Anion Gap 20.6 (5-19) H 01/21/22 16:50 BUN 13 mg/dL (6-20) 01/21/22 16:50 Creatinine 0.7 mg/dL (0.5-0.9) 01/21/22 16:50 GFR Calculation 92.7 mL/min (90-130) 01/21/22 16:50 Glucose 85 mg/dL (65-115) 01/21/22 16:50 Calculated Osmolality 269 mOsm/kg (285-295) L 01/21/22 16:50 Calcium 10.1 mg/dL (8.5-10.5) 01/21/22 16:50 C-Reactive Protein 40.8 mg/L (0.0-4.9) H 01/21/22 16:50 Discharge Plan Discharge Patient Disposition: Admitted As Inpatient Clinical Impression: Depression with suicidal ideation, Infected wound Condition: Stable Coding Level of Care Code ED Production Operations Manager for Janis Fwd Exam Comprehensive
--- NOTE | 2022-01-21 17:22 | PC.NURSE ---
Pt told this RN that she has been having thoughts of hurting herself the last couple days due to being arrested a couple days ago and she feels her life is falling apart. She said she did not have a plan but has been having thoughts, the male with her states that she told him that she had planned on cutting her wrist when i asked her about that she didnt say anything
[2022-01-21 18:01] LABS: Basophils # 0.1 10^3/uL (0.0-0.1); Basophils % 0.4 %; Eosinophils # 0.1 10^3/uL (0.0-0.8); Eosinophils % 0.5 %; Hemoglobin 14.4 g/dL (11.5-15.3); Lymphocytes # 1.6 10^3/uL (0.8-4.8); Lymphocytes % 12.1 %; Mean Corpuscular HGB Conc 32.7 g/dL (30.0-36.0); Mean Corpuscular Volume 88.7 fl (81-99); Mean Platelet Volume 9.6 fL (7.4-10.4); Monocytes % 7.6 %; Neutrophils # 10.47 10^3/uL (1.8-7.7); Neutrophils % 79.2 %; Nucleated Red Blood Cells % 0 %; Platelet Count 424 10^3/cmm (130-400); Red Blood Count 4.96 10^6/uL (4.1-5.3); Red Cell Distribution Width 13.8 % (12.1-15.1); White Blood Count 13.2 10^3/uL (4.0-10.0)
[2022-01-21] MEDS: piperacillin-tazobactam 4.5 GM in sodium chloride 0.9% (plus) 50 ML IV (18:04)
[2022-01-21] MEDS: nicotine 21 mg Patch 1 PATCH TRANSDERMA (18:05)
[2022-01-21 18:11] LABS: Erythrocyte Sedimentation Rate 54 mm/hr (0-15)
[2022-01-21] MEDS: vancomycin 1,000 MG in sodium chloride 0.9% 250 ML 250 MG IV (18:22)
[2022-01-21 18:31] LABS: Anion Gap 20.6 (5-19); Blood Urea Nitrogen 13 mg/dL (6-20); C Reactive Protein 40.8 mg/L (0.0-4.9); Calcium 10.1 mg/dL (8.5-10.5); Carbon Dioxide 23 mmol/L (22-29); Chloride 90 mmol/L (98-107); Glomerular Filtration Rate 92.7 mL/min (90-130); Glucose 85 mg/dL (65-115); Osmolality Calculated 269 mOsm/kg (285-295); Potassium 3.6 mmol/L (3.5-5.1); Sodium 130 mmol/L (136-145)
[2022-01-21 20:05] VITALS: BP 105/86; PULSE 116; RESP 14; TEMP 37; O2SAT 94
[2022-01-21 20:30] VITALS: BP 119/81; O2SAT 95
[2022-01-21 20:48] LABS: Amphetamines Screen Urine Positive (Negative); Barbiturates Screen Urine Negative (Negative); Benzodiazepines Screen Urine Negative (Negative); Cocaine Screen Urine Negative (Negative); Opiate Screen Urine Negative (Negative); PCP Screen Urine Negative (Negative); THC Screen Urine Positive (Negative)
--- NOTE | 2022-01-21 21:08 | XRR_ITS ---
PROCEDURE INFORMATION: Exam: XR Left Forearm Exam date and time: 01/21/2022 9:17 PM Age: 41 years old Clinical indication: Other: Cellulitis; Additional info: [facility] TECHNIQUE: Imaging protocol: Radiologic exam of the Left forearm. Views: 2 views. COMPARISON: No relevant prior studies available. FINDINGS: Bones/joints: Osseous structures are intact. Negative for fracture or irregular osseous erosions. Soft tissues: No evidence of subcutaneous emphysema. XR/XR forearm LT 2V [id number] IMPRESSION: No acute findings.
--- NOTE | 2022-01-21 21:08 | CTR_ITS ---
PROCEDURE INFORMATION: Exam: CT Head Without Contrast Exam date and time: 01/21/2022 9:24 PM Age: 41 years old Clinical indication: Pain; Altered mental status/memory loss and fever; Headache TECHNIQUE: Imaging protocol: Computed tomography of the head without contrast. Radiation optimization: All CT scans at this facility use at least one of these dose optimization techniques: automated exposure control; mA and/or kV adjustment per patient size (includes targeted exams where dose is matched to clinical indication); or iterative reconstruction. COMPARISON: CT head wo con* [id number] 08/29/2019 2:14 AM RADIATION DOSE METRICS: Total DLP (mGy-cm): 1109.78 FINDINGS: Brain: Normal. No hemorrhage. Unremarkable white matter. No mass effect. Cerebral ventricles: No ventriculomegaly. Paranasal sinuses: Visualized sinuses are unremarkable. No fluid levels. Mastoid air cells: Visualized mastoid air cells are well aerated. Bones/joints: Unremarkable. No acute fracture. Soft tissues: Unremarkable. CT/CT head wo con* [id number] IMPRESSION: No acute intracranial abnormality.
--- NOTE | 2022-01-21 21:08 | USCV_ITS ---
Christine Marr Age: 41 Gender: F : 1980 Exam Date: 01/21/2022 23:44 Ordering Phys: Howie Al MD Technologist: OSITO Exam Location: [facility] [place] Indication: IV drug use. BP: 119 / 81 HR: 90 Rhythm: Sinus Technical Quality: Adequate MEASUREMENTS (Male / Female) Normal Values 2D ECHO LV Diastolic Diameter PLAX 3.0 cm 4.2 - 5.9 / 3.9 - 5.3 cm LV Systolic Diameter PLAX 2.0 cm IVS Diastolic Thickness 1.1 cm 0.6 - 1.0 / 0.6 - 0.9 cm IVS Systolic Thickness 1.6 cm LVPW Diastolic Thickness 1.3 cm 0.6 - 1.0 / 0.6 - 0.9 cm LVPW Systolic Thickness 1.6 cm LVOT Diameter 1.8 cm LV Ejection Fraction 2D Teich 64.3 % LV Ejection Fraction MOD 2C 60.5 % LV Ejection Fraction 2C AL 60.6 % LA Diameter 3.0 cm LA Width 2.6 cm LA Height 4.2 cm RA Width 2.9 cm RA Height 3.6 cm Aorta at Sinotubular Diameter 2.5 cm IVC Diameter 1.5 cm M-MODE Aortic Annulus Diameter 2.9 cm LA Ao Ratio MM 1.0 MV E Point Septal Separation 0.2 cm DOPPLER AV Peak Velocity 134.0 cm/s LVOT Peak Velocity 90.0 cm/s AV Area Cont Eq vti 1.6 cm squared AV Area Cont Eq pk 1.7 cm squared MV Area PHT 3.1 cm squared Mitral E to A Ratio 0.8 MV E' Velocity 41.5 cm/s Mitral E to MV E' Ratio 8.3 Mitral E to LV E' Lateral Ratio 7.0 Mitral E to LV E' Septal Ratio 10.2 TR Peak Velocity 239.8 cm/s TR Peak Gradient 23.0 mmHg TV Peak E Velocity 64.0 cm/s Right Atrial Pressure 5.0 mmHg Pulmonary Artery Systolic Pressu 28.0 mmHg PV Peak Velocity 109.0 cm/s FINDINGS Left Ventricle Normal left ventricular size, systolic function and wall thickness, with no regional wall motion abnormalities. Left ventricular ejection fraction is estimated at 65 %. Normal diastolic function. Right Ventricle Normal right ventricular size and systolic function. Right ventricular systolic pressure 28 mmHg. Right Atrium Normal right atrial size. Left Atrium Normal left atrial size. Mitral Valve Structurally normal mitral valve. No mitral valve stenosis. Trace mitral valve regurgitation. Aortic Valve Structurally normal trileaflet aortic valve. No aortic valve stenosis. No aortic valve regurgitation. Tricuspid Valve Structurally normal tricuspid valve. No tricuspid valve stenosis. Trace tricuspid valve regurgitation. Pulmonic Valve Structurally normal pulmonic valve. No pulmonary valve stenosis. Trace pulmonary valve regurgitation. Pericardium No pericardial effusion. Aorta Normal size aortic root and proximal ascending aorta. IVC Normal IVC dimension with >50% respiratory change of the inferior vena cava. CONCLUSIONS 1. Normal left ventricular size, systolic function and wall thickness, with no regional wall motion abnormalities. Left ventricular ejection fraction is estimated at 65 %. Normal diastolic function. 2. Normal right ventricular size and systolic function. 3. No significant valvular abnormality. 4. No prior similar studies to compare. Jennifer Kaminski MD (Electronically Signed) Final Date: 22 January 2022 10:45 S
--- NOTE | 2022-01-21 21:09 | PM.HP ---
Providers/Chief Complaint Primary Care Provider: Zeeshan Rivera Chief Complaint: Infection, SOB History of Present Illness Christine Mrar is a 41 year old female with a past medical history depression, alcohol abuse, history of marijuana abuse, who is not on any medications, review incarcerated, who presents to [facility] due to a wound on her left arm, right arm, on her forehead, on her neck, feeling unwell, with fatigue, malaise, fevers. She denies any IV drug use, but does report meth use. She denies any cough, no dysuria, no hematuria, no neck pain, no pain with range of motion, does have a headache, no blurry vision. Denies history of endocarditis. Patient tells me that she got these wounds, primarily under her bilateral arms when she was incarcerated. But she is not very clear how she got them, she does have a history of self cutting behavior, but denies that this is as a result from self cutting behavior from IV drug abuse. She does report prior suicidal ideation and plan, but not actively suicidal, no active suicidal ideation, no active homicidal ideation. Her boyfriend at bedside, voices his concern, he tells me that she is been actively suicidal for the last few days, she is voiced a plan to him. Does report a history of depression and anxiety, not taking any medications. Review of Systems Const: Reports: fever(s), fatigue and malaise ENMT: Denies: throat pain Card: Denies: chest pain or palpitations Resp: Denies: dyspnea GI: Denies: abdominal pain or nausea : Denies: flank pain or difficulty voiding Musc: Denies: neck pain Skin/Breast: Reports: rash Medications/Allergies Home Medications Medication Instructions Recorded Confirmed Last Taken Type acetaminophen 500 mg tablet 1,500 mg PO Q6H PRN Pain 01/21/22 01/21/22 Unknown History albuterol sulfate 90 mcg/actuation 2 puff inhalation QID PRN 01/21/22 01/21/22 Unknown History aerosol inhaler Shortness Of Breath multivitamin 1 tab PO DAILY 01/21/22 01/21/22 Unknown History Allergies Allergy/AdvReac Type Severity Reaction Status Date / Time blueberry Allergy ALGY-Hives Verified 01/21/22 17:49 strawberry Allergy ALGY-Hives Verified 01/21/22 17:49 PFSH Acute PFSH: Medical History Polysubstance (excluding opioids) dependence Surgical History H/O tubal ligation Social History Smoking and tobacco status: current every day smoker Alcohol intake: current Substance/Drug Use: current Substance/Drug use type: Methamphetamine Female Reproductive History: Date of last menstrual period: 10/06/21 Vitals/I&O/Wt Last Vital Signs Temp 98.6 F 01/21/22 20:05 Pulse 116 H 01/21/22 20:05 Resp 14 01/21/22 20:05 BP 119/81 01/21/22 20:30 Pulse Ox 95 01/21/22 20:30 O2 Del Method 01/21/22 20:05 Weight last 48 hrs Weight 63.503 kg Physical Exam Const: COMMON NORMALS: no acute distress and patient oriented x3 HENMT: COMMON NORMALS: normocephalic HEAD & SCALP: normocephalic Eye: COMMON NORMALS: Equal, round and reactive pupils present and EOMs intact bilaterally Neck/C-Spine: COMMON NORMALS: no JVD Resp: COMMON NORMALS: normal respiratory effort, No retractions, No use of accessory muscles and clear to auscultation bilaterally AUSCULTATION: clear to auscultation bilaterally Cardio: COMMON NORMALS: no JVD, regular rate, regular rhythm, S1 normal heart sound present and S2 normal heart sound present RATE: regular rate RHYTHM: regular rhythm HEART SOUNDS: S1 normal heart sound present and S2 normal heart sound present GI: COMMON NORMALS: Normal to inspection, nondistended, normoactive bowel sounds present, Soft to palpation, non-tender, No hepatosplenomegaly present, no masses and no bruits PALPATION: Yes Soft to palpation and Yes No hepatosplenomegaly present Extremity: COMMON NORMALS: capillary refill normal, no clubbing, cyanosis or edema, no calf tenderness and no pedal edema Neuro: COMMON NORMALS: patient oriented x3, CN's II-XII intact bilaterally, moves all extremities and no focal motor deficits Psych: COMMON NORMALS: mental status grossly normal Skin: OTHER: - Left wrist, 3 x 3 cm oval round area of excoriation, -Right forearm, 1 x 1 cm round area of open excoriation -Multiple skin lesions, one on the forehead, Data : 01/21/22 16:50 01/21/22 16:50 Micro: Microbiology 01/21/22 16:58 Blood Culture - Preliminary Blood SPECIMEN COLLECTED 01/21/22 16:50 Blood Culture - Preliminary Blood SPECIMEN COLLECTED A&P Assessment and plan (1) Depression with suicidal ideation: Status: Acute (2) Infected wound: Status: Acute (3) Leukocytosis: Status: Acute Plan Leukocytosis, fevers, fatigue, malaise -Source is unclear -Elevated CRP, elevated ESR -UA currently pending, urine culture -She denies any IV drug use, urine toxicology screen positive for meth, blood cultures pending, -We will order cardiac echo for evaluation for endocarditis, blood cultures -Does have what seems like an infected wound on the left wrist with surrounding cellulitis, will do a x-ray of the wrist to see if there is any deep tissue infection, she might require a CT depending on what the x-ray shows -Does have multiple insect bites, denies any tick exposure, will start on doxycycline, tick panel ordered -HIV, acute hep, gonorrhea chlamydia -Full code -Lovenox for DVT prophylaxis Suicidal ideation, with depression -No active ideation -Recently has had a plan, and active suicidal ideation -Dr. Mclain has been consulted -Currently on suicide precautions Hyponatremia, hypokalemia, IV fluids, potassium replacement Attestations Medical Necessity Statement*: Patient requires position, inpatient, greater than 2 midnights, for concerns for bacteremia, cellulitis, suicidal ideation Coding Level of Care Code Acute Electric Sign Assembler for g Fwd Diagnoses Depression with suicidal ideation F32.A; R45.851 Infected wound T14.8XXA; L08.9 Leukocytosis D72.829
[2022-01-21 21:19] LABS: Alanine Aminotransferase 10 U/L (0-33); Albumin Level 4.1 g/dL (3.5-5.2); Alkaline Phosphatase 119 U/L (35-105); Anion Gap 17.2 (5-19); Aspartate Amino Transferase 15 U/L (0-32); Blood Urea Nitrogen 12 mg/dL (6-20); Calcium 9.3 mg/dL (8.5-10.5); Carbon Dioxide 23 mmol/L (22-29); Chloride 92 mmol/L (98-107); Creatinine Clr Calc Pharmacy 89.9896; Glomerular Filtration Rate 79.4 mL/min (90-130); Glucose 124 mg/dL (65-115); Osmolality Calculated 269 mOsm/kg (285-295); Potassium 3.2 mmol/L (3.5-5.1); Sodium 129 mmol/L (136-145); Total Bilirubin 1.4 mg/dL (0.15-1.2); Total Protein 7.1 g/dL (6.6-8.7)
[2022-01-21 21:21] LABS: Alcohol Level < 10 mg/dL (0-10)
[2022-01-21 22:00] VITALS: BP 115/79; PULSE 95; RESP 14
[2022-01-21 22:12] LABS: Add Urine Microscopic? NO; Charge for UA Resulting for Rev
[2022-01-21 22:24] LABS: Bilirubin Urine Neg (Negative); Blood Urine Neg (Negative); Glucose Urine UA Norm (Normal); Ketones Urine 1+ (Negative); Leukocyte Esterase Urine Negative (Negative); Nitrate Urine Negative (Negative); Protein Urine Neg (Negative); Sulfosalicylic Acid Urine Negative (Negative); Urine Appearance Clear (CLEAR); Urine Color Yellow (Yellow); Urobilinogen Urine Norm (Negative); pH Urine 8 (5-7)
[2022-01-22] VITALS (11 sets, daily range): BP systolic 105–160; BP diastolic 65–89; PULSE 64–90; RESP 12–22; TEMP 35.8–36.4; O2SAT 93–100
[2022-01-22 02:52] LABS: Procalcitonin 0.05 ng/mL (0-0.5)
[2022-01-22 02:57] LABS: Rapid Plasma Reagin Syphilis Nonreactive (Nonreactive)
[2022-01-22 03:05] LABS: Basophils % 0.4 %; Eosinophils # 0.1 10^3/uL (0.0-0.8); Eosinophils % 0.6 %; Hematocrit 39.6 % (37.0-47.0); Hemoglobin 12.8 g/dL (11.5-15.3); Lymphocytes # 1.2 10^3/uL (0.8-4.8); Lymphocytes % 10.9 %; Mean Corpuscular HGB Conc 32.3 g/dL (30.0-36.0); Mean Corpuscular Volume 89.8 fl (81-99); Mean Platelet Volume 9.6 fL (7.4-10.4); Monocytes # 0.9 10^3/uL (0.2-0.9); Monocytes % 8.6 %; Neutrophils # 8.52 10^3/uL (1.8-7.7); Neutrophils % 79.1 %; Nucleated Red Blood Cells % 0 %; Platelet Count 386 10^3/cmm (130-400); Red Blood Count 4.41 10^6/uL (4.1-5.3); White Blood Count 10.8 10^3/uL (4.0-10.0)
--- NOTE | 2022-01-22 03:05 | PC.PHAR ---
Vancomycin is dosed at 1gm IVPB every 12 hours to produce a predicted trough level of 15.26 (population based pharmacokinetic analysis). A trough level has been ordered from the lab to be obtained before the fourth dose to confirm and adjust if needed. The Zosyn is dosed at 3.375gm IVPB every 8 hours on the basis of the creatinine clearance of 89.98.
[2022-01-22 03:06] LABS: Magnesium 1.9 mg/dL (1.7-2.3)
[2022-01-22] MEDS: sodium chloride 0.9% 1,000 ML 75 ML IV ×2 (03:25→16:00)
[2022-01-22] MEDS: piperacillin-tazobactam 3.375 GM in sodium chloride 0.9% (plus) 50 ML IV ×2 (03:27→12:31)
[2022-01-22 03:29] LABS: Alanine Aminotransferase 10 U/L (0-33); Albumin Level 3.9 g/dL (3.5-5.2); Alkaline Phosphatase 112 U/L (35-105); Anion Gap 16.7 (5-19); Aspartate Amino Transferase 14 U/L (0-32); Blood Urea Nitrogen 13 mg/dL (6-20); Calcium 9.2 mg/dL (8.5-10.5); Carbon Dioxide 24 mmol/L (22-29); Chloride 96 mmol/L (98-107); Globulin 2.9 g/dL (1.3-4.6); Glomerular Filtration Rate 110.7 mL/min (90-130); Glucose 91 mg/dL (65-115); Magnesium 1.7 mg/dL (1.7-2.3); Osmolality Calculated 276 mOsm/kg (285-295); Phosphorus 4.1 mg/dL (2.5-4.5); Potassium 3.7 mmol/L (3.5-5.1); Sodium 133 mmol/L (136-145); Total Bilirubin 0.9 mg/dL (0.15-1.2); Total Protein 6.8 g/dL (6.6-8.7)
[2022-01-22] MEDS: acetaminophen 325 mg Tablet 650 MG PO (03:29)
[2022-01-22 03:30] LABS: Lactate (Lactic Acid level) 0.8 mmol/L (0.5-2.2)
[2022-01-22] MEDS: enoxaparin 40 mg/0.4 mL Syringe SUBCUT (03:33)
[2022-01-22] MEDS: potassium chloride ER 20 mEq Tablet 40 MEQ PO (03:37)
[2022-01-22 03:41] LABS: HIV 1 & 2 Antibody Non-Reactive (Non-Reactiv); HIV 1 & 2 Antigen Non-Reactive (Non-Reactiv)
[2022-01-22 03:44] LABS: Creatine Phosphokinase 63 U/L (26-192); Hepatitis A Antibody IgM Non-Reactive (Nonreactive); Hepatitis B Core IgM Non-Reactive (Nonreactive); Hepatitis B Surface Antigen Non-Reactive (Nonreactive); Hepatitis C Virus Antibody Non-Reactive (Nonreactive); Thyroid Stimulating Hormone 0.86 uIU/mL (0.27-4.20)
[2022-01-22] MEDS: vancomycin 1,000 MG in sodium chloride 0.9% 250 ML 250 MG IV ×2 (05:54→17:21)
[2022-01-22] MEDS: pantoprazole DR 40 mg Tablet PO (09:05)
[2022-01-22] MEDS: diphenhydrAMINE 50 mg/mL SDV 1mL IVP (13:18)
--- NOTE | 2022-01-22 13:35 | PC.NURSE ---
PT GOT UP TO GO TO THE BATHROOM. PT CAME OUT OF BATHROOM APPEARING FLUSHED, SLIGHTLY WHEEZING, AND HIVES AROUND HER NECK AREA. DR IBRAHIM ASSESSED PT AND ORDERED 50 MG OF BENADRYL AND 125 MG OF SOLUMEDROL. PT STABLE AT THIS TIME. VITAL SIGNS STABLE. O2 98% RA.
--- NOTE | 2022-01-22 16:36 | P.NPUCON_ITS ---
Providers/Reason for Consult Consulting Physican/Specialty*: Mike Mclain MD. Psychiatry. Reason for Consult*: Evaluation for safety. Attending Physician: John Mcdowell Primary Care Provider: Zeeshan Rivera Psych Consult HPI History of Present Illness Christine Marr is a 41 year old female who presented to the emergency department the following report: Chief complaint: Skin/Abscess/Foreign Body Stated complaint: Infection, SOB Time Seen by Provider: 01/21/22 17:07 History of Present Illness: Patient is a 41-year-old female with a history of recent meth use who was released from senior living on 01/17/2022 presenting to the emergency room with diffuse wound and suicidal ideation. Patient tells me that last time she used meth was 3 days ago. Since then, patient has noted diffuse wound on her body including her arms, her neck and the forehead. Patient also tells me that today she is feeling suicidal and has a plan. Patient does not want to monitor the plan. Patient's boyfriend is concerned the patient may go through with the plan. Patient denies any fever but reports chills. Reports diffuse pain over the wound sites throughout her body. Patient denies any prior history of IV drug use or endocarditis. Denies nausea/vomiting, fever/chill, chest pain, shortness of breath, abdominal pain, dysuria/hematuria/polyuria, diarrhea/melena/hematochezia. Onset:3 days ago Duration:3 days Location:home Severity:moderate Associated symptoms: Deny chest pain, dyspnea, nausea, palpitations or vomiting. She was admitted to the [facility] department for definitive treatment of those issues and a psychiatric consult was requested due to concerns for suicidality. She presents today as a poor historian having reportedly stated suicidal thoughts in the emergency department but now denying. Most of her story is lacked continuity or clarity. For instance she identified going to senior living recently and that that is where she got a scrape on her left forearm and she t alked about having pictures about how bad it looked but she denies any understanding or awareness of how the eschar originated. She remembers where she was and what was going on but has no recollection of what happened following that that she attributes to the first time she had ever been in senior living. She reports that it was her ex who endorsed her having lethality and that they had not been together for some time but in her story she identified that the reason why he knew she was at the hospital and came there was because she was on the phone with him reporting different problems. The only thing that is clear was her assertion that she would not harm herself and that she was not suicidal but she could give no explanation for the emergency department report. Additionally she is inconsistent or being dishonest about her methamphetamine use initially stating in her story that she had a significant period of sobriety but then backtracking when the drug screen results were revealed. She endorsed having employment and having an active relationship with her children, having a safe place to stay and denying safety concerns. We discussed the incongruence of the reports between the doctor on the [facility] unit and the doctor in the emergency department and needing to get collateral information before we would feel comfortable with discharge. Per her 06/21/2019 [facility] inpatient psychiatric evaluation: History of Present Illness Christine Marr is a 39 year old female who presented to the emergency room with complaints of worsening depression, alcohol use chronic, and significant stressors with her family.? This is her first psychiatric hospitalization and she reports and she presents to the interview with a significant change in the heart not wanting to be here and denying a desire for medication or any other kind of intervention.? She reports that she had a bad night and was really stressed but now that she is slept she realizes that this is not a place for her.? She is not really interested in answering questions and was mostly focused on whether or not she was on a 96-hour hold, meaning that she would have to stay.? We discussed the fact that she was not on a hold and that as a voluntary patient she can choose to disengage from treatment.? She denied any lethality, she reported an understanding that she needs to decrease her alcohol use, and did not really see her cannabis use as a problem to any degree.? We discussed her ability to return to the emergency room, call crisis numbers or follow-up at [facility] to advance her mental health and addiction treatment. Psychiatric history: She denies significant treatment or medications, but endorses knowing she does have depression and anxiety issues. Substance abuse history: She does endorse ongoing cigarette, alcohol and marijuana use she denies any other significant addiction issues.? And denies a current desire to pursue inpatient rehab or anything of that nature. She denied her psychosocial circumstances being contributory however notes in her chart do suggest some psychosocial challenges in the home. Meds Home Medications and Allergies Home Medications Medication Instructions Recorded Confirmed Last Taken Type acetaminophen 500 mg tablet 1,500 mg PO Q6H PRN Pain 01/21/22 01/21/22 Unknown History albuterol sulfate 90 mcg/actuation 2 puff inhalation QID PRN 01/21/22 01/21/22 Unknown History aerosol inhaler Shortness Of Breath multivitamin 1 tab PO DAILY 01/21/22 01/21/22 Unknown History Allergies Allergy/AdvReac Type Severity Reaction Status Date / Time blueberry Allergy ALGY-Hives Verified 01/21/22 17:49 piperacillin [From Zosyn] Allergy ALGY-Anaphy Verified 01/22/22 20:17 laxis strawberry Allergy ALGY-Hives Verified 01/21/22 17:49 tazobactam [From Zosyn] Allergy ALGY-Anaphy Verified 01/22/22 20:17 laxis Current Medications Current Medications Generic Name Dose Route Start Last Admin Trade Name Freq PRN Reason Stop Dose Admin Acetaminophen 650 mg 01/22/22 02:34 01/22/22 03:29 Acetaminophen 325 Mg Tablet PO 650 mg Q6H PRN Administration Mild/Mod Pain Or Temp >/= 101 Enoxaparin Sodium 40 mg 01/22/22 02:34 01/23/22 03:06 Enoxaparin 40 Mg/0.4 Ml Syringe SUBCUT 40 mg Q24H MATILDE Administration Piperacillin Sod/Tazobactam 50 mls @ 12.5 mls/hr 01/22/22 03:00 01/23/22 04:13 Sod 3.375 gm/ Sodium Chloride IV Not Given Q8H MATILDE Protocol As Directed Sodium Chloride 1,000 mls @ 75 mls/hr 01/22/22 02:34 01/22/22 16:00 Sodium Chloride 0.9% IV 75 mls/hr .[id number] MATILDE Administration Doxycycline Hyclate 100 mg/ 100 mls @ 100 mls/hr 01/22/22 21:30 01/22/22 23:33 Sodium Chloride IV Infused Q12H MATILDE Infusion Protocol Pantoprazole Sodium 40 mg 01/22/22 09:00 01/22/22 09:[address] 40 Mg Tablet PO 40 mg DAILY MATILDE Administration PFSH NPU PFSH: Medical History Polysubstance (excluding opioids) dependence Surgical History H/O tubal ligation Social History Smoking and tobacco status: current every day smoker Alcohol intake: current Substance/Drug Use: current Substance/Drug use type: Methamphetamine Mental Status Exam MSE Comments: This is a a well-nourished well-developed white female in the hospital gown with multicolored hair and adequate grooming and eye contact. No abnormal movements except for mild psychomotor retardation. Cooperative with exam in no acute distress. Speech was slightly decreased rate and volume. Mood described as good other than my infection, affect congruent. Thought process organized. Thought content: Patient denied any suicidal or homicidal ideations, there were no delusions reported or noted, she denies any auditory or visual hallucinations. Attention and concentration were intact and memory appeared unreliable but none were formally tested. She is alert and oriented x3. Insight and judgment are limited, impulse control appears fair.. Vitals/I&O/Wt Last Vital Signs Temp 97.4 F L 01/22/22 16:00 Pulse 82 01/22/22 16:00 Resp 16 01/22/22 16:00 BP 130/89 01/22/22 16:00 Pulse Ox 95 01/22/22 16:00 O2 Del Method 01/22/22 16:00 01/22/22 14:59 Intake Total Balance Weight last 48 hrs Weight 63.503 kg Data NPU : 01/23/22 05:05 01/23/22 05:05 Micro: Microbiology 01/21/22 16:58 Blood Culture - Preliminary Blood NEGATIVE TO DATE 01/21/22 16:50 Blood Culture - Preliminary Blood NEGATIVE TO DATE 01/21/22 20:08 Chlamydia trachomatis (VALENTINO) - Final Urine Random Neisseria gonorrhoeae (VALENTINO) - Final 01/21/22 20:08 Bacterial Antigens - Final Urine,Clean Catch Microbiology 01/21/22 16:58 Blood Blood Culture - Preliminary NEGATIVE TO DATE 01/21/22 16:50 Blood Blood Culture - Preliminary NEGATIVE TO DATE 01/21/22 20:08 Urine Random Chlamydia trachomatis (VALENTINO) - Final 01/21/22 20:08 Urine Random Neisseria gonorrhoeae (VALENTINO) - Final 01/21/22 20:08 Urine,Clean Catch Bacterial Antigens - Final A&P Assessment and plan (1) Cannabis abuse: Status: Acute (2) Chlamydia: Status: Acute (3) Carbuncles: Status: Acute (4) Leukocytosis: Status: Acute (5) Depression with suicidal ideation: Status: Acute (6) Infected wound: Status: Acute (7) Fracture, Colles, left, closed: Status: Acute (8) Depression: Status: Acute Qualifiers: Active/Remission status: currently active Depression Type: major depressive disorder Major depression episode severity: moderate Major depression recurrence: recurrent Qualified Code(s): F33.1 - Major depressive disorder, recurrent, moderate (9) Methamphetamine use: Status: Acute Plan This is a 41-year-old white female with a long history of alcohol, cannabis and methamphetamine use and depression who presented to the emergency room endorsing depression and suicidality however upon arriving on the unit and staying overnight she is denying lethality. 1. Continue current medication. 2. Encourage outpatient follow-up for her mental health and addiction issues. 3. Obtain collateral information to allow us to determine whether we should listen to the comments made to the emergency department versus the comments she made subsequently on the [facility] unit. 4. Recommend sober living aftercare at the highest level to which she is willing to commit. 5. We will continue to follow to determine whether she needs continued treatment on the neuropsychiatric unit or would be safe to discharge after her infection is managed. Involuntary Hold Information 96 Hour Hold: 96 Hour Involuntary Admission: No Attestations NPU Medical Necessity Statement*: N/A. Please see primary team note for medical necessity but will continue to follow to evaluate for safety for discharge. Coding Level of Care Code Acute Purchase Price Analyst for g Fwd Diagnoses Cannabis abuse F12.10 Chlamydia A74.9 Carbuncles L02.93 Leukocytosis D72.829 Depression with suicidal ideation F32.A; R45.851 Infected wound T14.8XXA; L08.9 Fracture, Colles, left, closed S52.532A Depression F33.1 Active/Remission status: currently active Depression Type: major depressive disorder Major depression episode severity: moderate Major depression recurrence: recurrent Methamphetamine use F15.10
--- NOTE | 2022-01-22 21:23 | CTR_ITS ---
PROCEDURE INFORMATION: Exam: CT Abdomen And Pelvis Without Contrast Exam date and time: 01/22/2022 9:46 PM Age: 41 years old Clinical indication: Abdominal pain; Generalized TECHNIQUE: Imaging protocol: Computed tomography of the abdomen and pelvis without contrast. Radiation optimization: All CT scans at this facility use at least one of these dose optimization techniques: automated exposure control; mA and/or kV adjustment per patient size (includes targeted exams where dose is matched to clinical indication); or iterative reconstruction. COMPARISON: CT abdomen pelvis w con* [id number] 10/06/2021 4:35 PM RADIATION DOSE METRICS: Total DLP (mGy-cm): 407.6 FINDINGS: Liver: Normal. No mass. Gallbladder and bile ducts: Normal. No calcified stones. No ductal dilation. Pancreas: Normal. No ductal dilation. Spleen: Normal. No splenomegaly. Adrenal glands: Normal. No mass. Kidneys and ureters: Normal. No renal stone or hydronephrosis. Stomach and bowel: Unremarkable. No obstruction. No mucosal thickening. Appendix: The appendix is normal. Intraperitoneal space: Unremarkable. No free air. No significant fluid collection. Vasculature: Unremarkable. No abdominal aortic aneurysm. Lymph nodes: Unremarkable. No enlarged lymph nodes. Urinary bladder: Unremarkable as visualized. Reproductive: The uterus and ovaries appear normal. Bones/joints: Unremarkable. No acute fracture. Soft tissues: Unremarkable. CT/CT abdomen pelvis con [id number] IMPRESSION: No acute abnormality is seen in the abdomen or pelvis
--- NOTE | 2022-01-22 21:26 | P.PN_ITS ---
Subjective Subjective: Was doing better this morning. Reported having some wounds/pustules in several locations on her body, including left medial wrist, but also posterior right shoulder, forehead, back of the head. Later in the afternoon had transient episode of severe abdominal pain. Required pain medication. This had resolved by the time I had come back up to see her and she was resting. Vitals/I&O/Wt Last Vital Signs Temp 96.5 F L 01/22/22 20:00 Pulse 86 01/22/22 20:00 Resp 18 01/22/22 20:00 BP 114/65 01/22/22 20:00 Pulse Ox 97 01/22/22 20:00 O2 Del Method 01/22/22 20:00 01/22/22 01/22/22 01/22/22 06:59 14:59 22:59 Intake Total 1600 / 1600 293.125 / 293.125 Balance 1600 / 1600 293.125 / 293.125 Weight last 48 hrs Weight 63.503 kg Physical Exam Const: COMMON NORMALS: patient oriented x3 and alert GENERAL APPEARANCE: cooperative and disheveled ORIENTATION/CONSCIOUSNESS: Yes awake HENMT: COMMON NORMALS: oropharynx normal Neck/C-Spine: COMMON NORMALS: no JVD Resp: COMMON NORMALS: normal respiratory effort and clear to auscultation bilaterally AUSCULTATION: clear to auscultation bilaterally Cardio: COMMON NORMALS: no JVD, regular rhythm, S1 normal heart sound present, S2 normal heart sound present and No murmurs present (Cardio) RHYTHM: regular rhythm HEART SOUNDS: S1 normal heart sound present and S2 normal heart sound present GI: COMMON NORMALS: Normal to inspection, nondistended, normoactive bowel sounds present, Soft to palpation and non-tender PALPATION: Yes Soft to palpation Extremity: COMMON NORMALS: no joint enlargement and no pedal edema Neuro: COMMON NORMALS: patient oriented x3 and moves all extremities SENSORIUM/ORIENTATION: Yes alert Skin: COMMON NORMALS: no rashes or lesions noted GENERAL SKIN EXAM: no rashes or lesions noted OTHER: Noticed carbuncles or posterior right shoulder, forehead. Excoriated lesion draining some purulence on medial left wrist. Flat lesion/ulceration on the back of the head. Data : 01/22/22 02:59 01/22/22 02:59 Micro: Microbiology 01/21/22 16:58 Blood Culture - Preliminary Blood NEGATIVE TO DATE 01/21/22 16:50 Blood Culture - Preliminary Blood NEGATIVE TO DATE 01/21/22 20:08 Chlamydia trachomatis (VALENTINO) - Final Urine Random Neisseria gonorrhoeae (VALENTINO) - Final 01/21/22 20:08 Bacterial Antigens - Final Urine,Clean Catch A&P Assessment and plan (1) Infected wound: Left wrist, in addition a number of carbuncles and/or excoriated ulcerations, i ncluding posterior right shoulder, forehead, anteriorly, to the right of midline, shallow ulceration without swelling on the back of the head. Some purulent drainage from the left wrist wound. Collect culture. Continue empiric antibiotics with Zosyn and vancomycin. Status: Acute (2) Carbuncles: Appears to have some ulcerations some of them have swelling, difficulty to determine if they have some purulence collection. Does not [place] have fluctuance. Will request additional assessment by ultrasound to assess for possible abscess. Status: Acute (3) Leukocytosis: Status: Acute (4) Chlamydia: Add doxycycline. HIV negative. Acute hepatitis nonreactive. RPR pending. Gonorrhea negative. Status: Acute (5) Depression with suicidal ideation: Pending psychiatric assessment. Continue one-to-one sitter. Status: Acute Plan Episode of severe abdominal pain: CT abdomen pelvis Hyponatremia IV fluids, Hypokalemia replaced. Recheck magnesium. Attestations Medical Necessity Statement*: Continue admission for additional assessment of wounds, as well as wound infection, leukocytosis, pending additional assessment of depression and suicidal ideation. Coding Level of Care Code Acute Filler Block Inserter Remover for [facility] Fwd Diagnoses Infected wound T14.8XXA; L08.9 Carbuncles L02.93 Leukocytosis D72.829 Chlamydia A74.9 Depression with suicidal ideation F32.A; R45.851
[2022-01-22] MEDS: doxycycline 100 MG in sodium chloride 0.9% (plus) 100 ML IV (22:33)
[2022-01-23] VITALS: BP 102/65; PULSE 75; RESP 16; TEMP 36.7; O2SAT 95
[2022-01-23] MEDS: enoxaparin 40 mg/0.4 mL Syringe SUBCUT (03:06)
[2022-01-23 04:00] VITALS: BP 106/68; PULSE 72; RESP 14; TEMP 36.8; O2SAT 96
[2022-01-23 05:17] LABS: Basophils % 0.1 %; Hematocrit 41.2 % (37.0-47.0); Hemoglobin 12.8 g/dL (11.5-15.3); Mean Corpuscular HGB Conc 31.1 g/dL (30.0-36.0); Mean Corpuscular Hemoglobin 28.7 pg (28.0-34.0); Mean Corpuscular Volume 92.4 fl (81-99); Mean Platelet Volume 9.8 fL (7.4-10.4); Monocytes % 6.5 %; Neutrophils # 12.64 10^3/uL (1.8-7.7); Neutrophils % 85.9 %; Nucleated Red Blood Cells % 0 %; Platelet Count 405 10^3/cmm (130-400); Red Blood Count 4.46 10^6/uL (4.1-5.3); Red Cell Distribution Width 13.8 % (12.1-15.1); White Blood Count 14.7 10^3/uL (4.0-10.0)
[2022-01-23 05:40] LABS: Alanine Aminotransferase 10 U/L (0-33); Albumin Level 3.7 g/dL (3.5-5.2); Alkaline Phosphatase 114 U/L (35-105); Anion Gap 13.4 (5-19); Aspartate Amino Transferase 15 U/L (0-32); Blood Urea Nitrogen 14 mg/dL (6-20); Calcium 8.9 mg/dL (8.5-10.5); Carbon Dioxide 24 mmol/L (22-29); Chloride 105 mmol/L (98-107); Creatine Phosphokinase 47 U/L (26-192); Globulin 2.4 g/dL (1.3-4.6); Glomerular Filtration Rate 110.7 mL/min (90-130); Glucose 143 mg/dL (65-115); Magnesium 1.9 mg/dL (1.7-2.3); Osmolality Calculated 289 mOsm/kg (285-295); Phosphorus 2.7 mg/dL (2.5-4.5); Potassium 4.4 mmol/L (3.5-5.1); Sodium 138 mmol/L (136-145); Total Bilirubin 0.3 mg/dL (0.15-1.2); Total Protein 6.1 g/dL (6.6-8.7)
[2022-01-23 05:45] LABS: Vancomycin Trough 5.3 ug/mL (10-15)
[2022-01-23 05:46] LABS: Lactate (Lactic Acid level) 1.2 mmol/L (0.5-2.2)
[2022-01-23] MEDS: vancomycin 1,000 MG in sodium chloride 0.9% 250 ML 250 MG IV (05:51)
[2022-01-23 06:00] VITALS: PULSE 67
[2022-01-23] MEDS: sodium chloride 0.9% 1,000 ML 75 ML IV (06:55)
[2022-01-23 07:28] VITALS: BP 104/65; PULSE 65; RESP 18; TEMP 36.6; O2SAT 99
[2022-01-23 08:00] VITALS: PULSE 88; RESP 16; O2SAT 94
[2022-01-23] MEDS: pantoprazole DR 40 mg Tablet PO (08:38)
[2022-01-23] MEDS: doxycycline 100 MG in sodium chloride 0.9% (plus) 100 ML IV (08:38)
[2022-01-23 11:00] VITALS: BP 119/76; PULSE 60; RESP 15; TEMP 36.4; O2SAT 97
--- NOTE | 2022-01-23 11:21 | PC.NURSE ---
Orders received from Dr. Mcodwell to discontinue Zosyn due to possible reaction in ER.
--- NOTE | 2022-01-23 11:49 | PC.CHAP ---
Pastoral Care Encounter/Spiritual Assessment Type of Contact [] Declined continuous improvement coach visit [] Patient/Family/Request visit [] Outpatient visit [] Follow-up visit [] Physician referral [] Code/Alert [x] Routine visit [] Staff referral [] Actively dying [] Patient sleeping [] Family support [] [] Out of room [] Palliative care [] [] Receiving care in room [] Pre-surgical visit [] Trauma [] Long length of stay [] ICU visit [] Other: Relational/Emotional Strength [x] Patient feels connected with others/family/visitors/staff [] Distress [] Loneliness/isolation [] Abandonment Spirituality of Patient [x] Person of Lindsay [] Attends Anabaptism of their [place] [x] Believes in Prayer [] Reads Bible or Yarsani materials [] There are Spiritual issues to be addressed Storage Solutions Architect Interventions x] Active listening [] Non-anxious presence [] Spiritual/emotional support [] Crisis/trauma care [] Spiritual counseling [] Bereavement support [] Provided bereavement packet [] Provided Bible/devotional materials [] Provided toy/stuffed animal, coloring book to patient or family member [] Provided Communion [] Anointing/[place] [] Salvation [x] Completed spiritual assessment [] Other: Impact on Illness or Injury [] Angry [] Fearful [] Anxious [] Often cries [] Exhaustion [] Unable to work [] Unable to attend church [] Unable to walk/stand [] Unable to read [] Unable to drive [] Unable to eat/drink [] Unable to sleep [] Unable to be with family [] Patient intubated [] Other: Summary Time spent with patient 10 min
--- NOTE | 2022-01-23 12:36 | P.DS_ITS ---
Discharge Providers Date of Admission: 01/22/22 02:34 Date of Discharge: January 23, 2022 Attending Provider at Admission: Howie Al MD Attending Provider at Discharge: John Mcdowell Primary Care Provider: Zeeshan Rivera Diagnoses at Discharge Discharge Diagnosis (1) Cannabis abuse: Status: Acute (2) Chlamydia: Status: Acute (3) Carbuncles: Status: Acute (4) Leukocytosis: Status: Acute (5) Depression with suicidal ideation: Status: Acute (6) Infected wound: Status: Acute (7) Fracture, Colles, left, closed: Status: Acute (8) Depression: Status: Acute Qualifiers: Active/Remission status: currently active Depression Type: major depressive disorder Major depression episode severity: moderate Major depression recurrence: recurrent Qualified Code(s): F33.1 - Major depressive disorder, recurrent, moderate (9) Methamphetamine use: Status: Acute Reason for Visit Reason for Visit: Infection, SOB Hospital Course Hospital Course 41-year-old lady with history of polysubstance use disorder, active methamphetamine use, last 3 days ago, recently released from custodial on 01/17, in the past with skin infections, including MRSA, presented to the ER for assessment due to nonhealing wound of the left wrist, multiple other shallow ulcerations/wounds, and suicidal ideation reported in ER, concern expressed by her boyfriend. Presentation with leukocytosis, reported fevers, although afebrile in the hospital, malaise. Though admitting to methamphetamine use, denied IV drug injection. Blood cultures were collected, and so far negative. She was empirically treated initially with Zosyn vancomycin, however, with reported reaction after Zosyn, with diffuse flushing, feeling unwell, diffuse body pain, reported transient hives as well, Zosyn infusion was aborted in ER, and he received Benadryl and a steroid injection. Cultures were collected from left wrist wound and are still pending. Due to possibility of carbuncles on the posterior right shoulder, forehead, with also noted shallow ulceration on the back of her head, these were assessed by ultrasound, without any finding of abscess. HIV, hepatitis panel were negative. RPR is still pending. Gonorrhea was negative, but chlamydia DNA came back positive. She suspects that she had contracted chlamydia from her boyfriend. Discussed with her regarding treatmen t. Discussed with her abstinence from sexual activity 7 days after treatment. Discussed also that her partner and any other sexual contacts, as well as any of his sexual contacts will need to be notified so they may receive testing and treatment. Discussed with the lab, and they will reach out to health department. She was assessed by psychiatry with regards to depression and suicidal ideation. Today she overall was feeling much better. She had some issues with infusion of doxycycline which did not feel good going in her vein, so this was transitioned to oral medication. She otherwise had no other complaints. She denied any suicidal ideation or intention. She was reassessed by psychiatry. She is asked to complete doxycycline course for chlamydia and wound infection with history of MRSA. Please follow-up on testing and treatment of partner or any other sexual contacts. Please follow-up wound culture results, does antibiotic if needed. Please follow-up on healing of shallow ulcerations/excoriations. Please continue to encourage her to follow-up for her mental health and addiction issues. Encourage her to abstain from methamphetamine use. Physical Exam Const: COMMON NORMALS: patient oriented x3 and alert GENERAL APPEARANCE: cooperative ORIENTATION/CONSCIOUSNESS: Yes awake HENMT: COMMON NORMALS: oropharynx normal Neck/C-Spine: COMMON NORMALS: no JVD Resp: COMMON NORMALS: normal respiratory effort and clear to auscultation bilaterally AUSCULTATION: clear to auscultation bilaterally Cardio: COMMON NORMALS: no JVD, regular rhythm, S1 normal heart sound present, S2 normal heart sound present and No murmurs present (Cardio) RHYTHM: regular rhythm HEART SOUNDS: S1 normal heart sound present and S2 normal heart sound present GI: COMMON NORMALS: Normal to inspection, nondistended, normoactive bowel sounds present, Soft to palpation and non-tender PALPATION: Yes Soft to palpation Extremity: COMMON NORMALS: no joint enlargement and no pedal edema Neuro: COMMON NORMALS: patient oriented x3 and moves all extremities SENSORIUM/ORIENTATION: Yes alert Skin: COMMON NORMALS: no rashes or lesions noted GENERAL SKIN EXAM: no rashes or lesions noted OTHER: Shallow ulcerations with improving swelling, no drainage or posterior right shoulder, forehead. Excoriated lesion medial left wrist. No drainage, no surrounding erythema. Flat lesion/ulceration on the back of the head. Discharge Data Studies Completed and Pending Completed Studies During Hospitalization Category Date Time Status CT abdomen pelvis wo con [id number] Routine Cat Scan 01/22/22 21:[address] head wo con* [id number] Stat Cat Scan 01/21/22 21:08 Completed XR forearm LT 2V [id number] Stat Exams 01/21/22 21:08 Completed CV. echo complete* [id number] Stat Ultrasound 01/21/22 21:08 Completed US soft tissue/extremity [id number] Routine Ultrasound 01/23/22 21:24 Completed Pending at discharge Category Date Time Status Blood Culture Stat Lab 01/21/22 16:58 Results Tick Panel Stat Lab 01/21/22 22:27 Received Urine Culture Stat Lab 01/21/22 20:08 Received Wound Culture and Gram Stain Routine Lab 01/23/22 03:00 Received Radiology Impressions Forearm X-Ray 01/21/22 21:08 IMPRESSION: No acute findings. Head CT 01/21/22 21:08 IMPRESSION: No acute intracranial abnormality. Abdomen/Pelvis CT 01/22/22 21:23 IMPRESSION: No acute abnormality is seen in the abdomen or pelvis Soft Tissue Ultrasound 01/23/22 21:24 IMPRESSION: No evidence of underlying drainable abscess or fluid collection in the areas of concern. Laboratory Results WBC 14.7 10^3/uL (4.0-10.0) H 01/23/22 05:05 RBC 4.46 10^6/uL (4.1-5.3) 01/23/22 05:05 Hgb 12.8 g/dL (11.5-15.3) 01/23/22 05:05 Hct 41.2 % (37.0-47.0) 01/23/22 05:05 MCV 92.4 fl (81-99) 01/23/22 05:05 MCH 28.7 pg (28.0-34.0) 01/23/22 05:05 MCHC 31.1 g/dL (30.0-36.0) 01/23/22 05:05 RDW 13.8 % (12.1-15.1) 01/23/22 05:05 Plt Count 405 10^3/cmm (130-400) H 01/23/22 05:05 MPV 9.8 fL (7.4-10.4) 01/23/22 05:05 Neut % (Auto) 85.9 % 01/23/22 05:05 Lymph % (Auto) 7.0 % 01/23/22 05:05 [place] % (Auto) 6.5 % 01/23/22 05:05 Eos % (Auto) 0.0 % 01/23/22 05:05 Baso % (Auto) 0.1 % 01/23/22 05:05 Neut # (Auto) 12.64 10^3/uL (1.8-7.7) H 01/23/22 05:05 Lymph # (Auto) 1.0 10^3/uL (0.8-4.8) 01/23/22 05:05 [place] # (Auto) 1.0 10^3/uL (0.2-0.9) H 01/23/22 05:05 Eos # (Auto) 0.0 10^3/uL (0.0-0.8) 01/23/22 05:05 Baso # (Auto) 0.0 10^3/uL (0.0-0.1) 01/23/22 05:05 Nucleated RBC % (auto) 0 % 01/23/22 05:05 Nucleated RBCs # 0.0 /100WBC 01/23/22 05:05 ESR 54 mm/hr (0-15) H 01/21/22 16:50 Sodium 138 mmol/L (136-145) 01/23/22 05:05 Potassium 4.4 mmol/L (3.5-5.1) 01/23/22 05:05 Chloride 105 mmol/L (98-107) 01/23/22 05:05 Carbon Dioxide 24 mmol/L (22-29) 01/23/22 05:05 Anion Gap 13.4 (5-19) 01/23/22 05:05 BUN 14 mg/dL (6-20) 01/23/22 05:05 Creatinine 0.6 mg/dL (0.5-0.9) 01/23/22 05:05 GFR Calculation 110.7 mL/min (90-130) 01/23/22 05:05 Glucose 143 mg/dL (65-115) H 01/23/22 05:05 Calculated Osmolality 289 mOsm/kg (285-295) 01/23/22 05:05 Lactate 1.2 mmol/L (0.5-2.2) 01/23/22 05:05 Calcium 8.9 mg/dL (8.5-10.5) 01/23/22 05:05 Phosphorus 2.7 mg/dL (2.5-4.5) 01/23/22 05:05 Magnesium 1.9 mg/dL (1.7-2.3) 01/23/22 05:05 Total Bilirubin 0.3 mg/dL (0.15-1.2) 01/23/22 05:05 AST 15 U/L (0-32) 01/23/22 05:05 ALT 10 U/L (0-33) 01/23/22 05:05 Alkaline Phosphatase 114 U/L (35-105) H 01/23/22 05:05 Creatine Kinase 47 U/L (26-192) 01/23/22 05:05 C-Reactive Protein 40.8 mg/L (0.0-4.9) H 01/21/22 16:50 Total Protein 6.1 g/dL (6.6-8.7) L 01/23/22 05:05 Albumin 3.7 g/dL (3.5-5.2) 01/23/22 05:05 Globulin 2.4 g/dL (1.3-4.6) 01/23/22 05:05 Procalcitonin 0.05 ng/mL (0-0.5) 01/21/22 22:27 TSH 0.86 uIU/mL (0.27-4.20) 01/22/22 02:59 Urine Color Yellow (Yellow) 01/21/22 20:08 Urine Appearance Clear (CLEAR) 01/21/22 20:08 Urine pH 8 (5-7) H 01/21/22 20:08 Ur Specific [place] 1.010 (1.005-1.030) 01/21/22 20:08 Urine Protein Neg (Negative) 01/21/22 20:08 Urine Glucose (UA) Norm (Normal) 01/21/22 20:08 Urine Ketones 1+ (Negative) H 01/21/22 20:08 Urine Blood Neg (Negative) 01/21/22 20:08 Urine Nitrate Negative (Negative) 01/21/22 20:08 Urine Bilirubin Neg (Negative) 01/21/22 20:08 Prot Sulfosalicylic Acd Negative (Negative) 01/21/22 20:08 Urine Urobilinogen Norm mg/dL (Negative) 01/21/22 20:08 Ur Leukocyte Esterase Negative (Negative) 01/21/22 20:08 Vancomycin Trough 5.3 ug/mL (10-15) L 01/23/22 05:05 Urine Opiates Screen Negative ng/mL (Negative) 01/21/22 20:08 Ur Barbiturates Screen Negative ng/mL (Negative) 01/21/22 20:08 Ur Phencyclidine Scrn Negative ng/mL (Negative) 01/21/22 20:08 Ur Amphetamines Screen Positive ng/mL (Negative) H 01/21/22 20:08 U Benzodiazepines Scrn Negative ng/mL (Negative) 01/21/22 20:08 Urine Cocaine Screen Negative ng/mL (Negative) 01/21/22 20:08 U Marijuana (THC) Screen Positive ng/mL (Negative) H 01/21/22 20:08 Ethyl Alcohol < 10 mg/dL (0-10) 01/21/22 19:59 RPR Nonreactive (Nonreactive) 01/21/22 22:27 Hepatitis A IgM Ab Non-reactive (Nonreactive) 01/22/22 02:59 Hep Bs Antigen Non-reactive (Nonreactive) 01/22/22 02:59 Hep B Core IgM Ab Non-reactive (Nonreactive) 01/22/22 02:59 Hepatitis C Antibody Non-reactive (Nonreactive) 01/22/22 02:59 HIV 1&2 Ab & HIV 1 Ag Non-reactive (Non-Reactiv) 01/22/22 02:59 HIV 1&2 Antibody Non-reactive (Non-Reactiv) 01/22/22 02:59 Vitals Last Vital Signs Temp 97.6 F 01/23/22 11:00 Pulse 60 01/23/22 11:00 Resp 15 01/23/22 11:00 BP 119/76 01/23/22 11:00 Pulse Ox 97 01/23/22 11:00 O2 Del Method 01/23/22 11:00 Discharge Plan Discharge Patient Disposition: Home Condition: Stable Prescriptions: New doxycycline hyclate 100 mg capsule 100 mg PO BID 7 Days Qty: 14 0RF Continued multivitamin Tablet 1 tab PO DAILY acetaminophen 500 mg Tablet 1,500 mg PO Q6H PRN (Reason: Pain) albuterol sulfate 90 mcg/actuation Hfa Aerosol Inhaler 2 puff INHALATION QID PRN (Reason: Shortness Of Breath) Discharge Orders: Discharge Order (Routine); Ordered 01/23/22 Ordered By: John Mcdowell Referrals: Zeeshan Rivera [Primary Care Provider] - 4-7 days (Please call and schedule 4-7 day follow up. ) Patient Instructions: Doxycycline (By mouth), Chlamydia (GEN), Methamphetamine Use Disorder (GEN), Suicide Prevention (GEN), Opioid Safety Activity Restrictions/Additional Instructions: Please complete doxycycline course for chlamydia infection. After you complete the course please abstain from sexual intercourse for 7 days. Please follow-up with your primary doctor for reassessment and repeat screening. Any sexual partners you have had within the last 60 days will also need testing and treatment. Please notify them to seek medical attention. Please follow-up with your primary doctor for reassessment of healing of the wound on your left wrist. Please have your primary doctor follow-up the results of the wound cultures. You may be notified in case your antibiotic regimen needs to change. Please follow-up with your primary doctor for reassessment of carbuncles in other locations on your body. Clean them with warm soapy water. Cover with dr letty if they are in an area that may get them abraded or injured. Avoid scratching to avoid infection. Please discontinue amphetamine use and avoid any recreational substance use. Continued amphetamine use will present danger to your health and possibly life. In case you experience worse depression, any thoughts of harming yourself or ending her life, please seek medical attention immediately. Discharge Attestations Time Spent in Discharge Care*: greater than 30 min Quality Metrics Clinical Quality Measures [ No reported AMI, CVA or VTE this stay] Coding Level of Care Code Acute [facility] note Exam Comprehensive Diagnoses Cannabis abuse F12.10 Chlamydia A74.9 Carbuncles L02.93 Leukocytosis D72.829 Depression with suicidal ideation F32.A; R45.851 Infected wound T14.8XXA; L08.9 Fracture, Colles, left, closed S52.532A Depression F33.1 Active/Remission status: currently active Depression Type: major depressive disorder Major depression episode severity: moderate Major depression recurrence: recurrent Methamphetamine use F15.10
[2022-01-23 14:18] LABS: Lyme AB Screen <0.90 index
--- NOTE | 2022-01-23 21:24 | US_ITS ---
WS: [id number] INDICATION: lesions on LEFT Wrist, RIGHT shoulder, and forehead. TECHNIQUE: Ultrasound soft tissue FINDINGS: Ultrasound soft tissue in the areas of concern. No evidence of underlying drainable abscess or fluid collection in the areas of concern. No other suspicious findings. US/US soft tissue/extremity [id number] IMPRESSION: No evidence of underlying drainable abscess or fluid collection in the areas of concern.
[2022-01-26 20:53] LABS: E. Chaffeensis AB IGG <1:64; E. Chaffeensis AB IGM <1:20
[2022-02-18 17:04] LABS: RMSF IGG NOT DETECTED; RMSF IGM NOT DETECTED
== END 2022-01-23 11:59 | disposition home or self-care (01) | DRG 603 ==
LOC: ER 17:42 → ER IP 01-22 07:13 → MEDSURG 01-22 13:01
PROVIDERS: Admitting Provider Family Medicine; Emergency Provider Emergency Medicine; PCP Family Medicine; Visit Provider Internal Medicine
DX: L03.114 Cellulitis of left upper limb (principal); F33.1 Major depressive disorder, recurrent, moderate; R45.851 Suicidal ideations; E87.1 Hypo-osmolality and hyponatremia; B95.62 Methicillin resistant Staphylococcus aureus infection as the cause of diseases classified elsewhere; L98.499 Non-pressure chronic ulcer of skin of other sites with unspecified severity; L02.433 Carbuncle of right upper limb; L02.03 Carbuncle of face; A74.9 Chlamydial infection, unspecified; R10.9 Unspecified abdominal pain; F12.10 Cannabis abuse, uncomplicated; F15.90 Other stimulant use, unspecified, uncomplicated; W57.XXXA Bitten or stung by nonvenomous insect and other nonvenomous arthropods, initial encounter
CPT/HCPCS: 36415; 70450; 73090; 74176; 76882; 80048; 80053; 80074; 80202; 80306; 80307; 81003; 82550; 83605; 83735; 84100; 84145; 84443; 85025; 85651; 86140; 86403; 86592; 86618; 86666; 86757; 87040; 87070; 87075; 87077; 87086; 87186; 87205; 87491; 87591; 87806; 93306; 94664; 96372; 99285; J1200; J1650; J2543; J2930; J3370; J3490; J7030; J7050

== ENCOUNTER 2023-07-13 09:53 | Emergency (ER) | payer MEDICAID, SELFPAY ==
[2023-07-13 09:58] VITALS: BP 142/81; PULSE 91; RESP 16; TEMP 36.4; O2SAT 100; BMI 24.2
--- NOTE | 2023-07-13 10:19 | W.ED.SKABFB ---
HPI - Skin/Abscess/Foreign Bdy General: Chief complaint: Skin/Abscess/Foreign Body Stated complaint: rash, hives Time Seen by Provider: 07/13/23 10:11 Source: patient Mode of arrival: ambulatory Limitations: no limitations History of Present Illness: 43-year-old female who states that she had hive-like rash to her arms and legs over the last 2 days states very pruritic in nature states she is allergic to strawberries but no other known allergies she denies any shortness of breath denies any worsening improving factors she has taken some Benadryl at home with minimal relief Associated symptoms: Deny chills, nausea or vomiting Review of Systems Const: Denies: chills, body aches or change in appetite ENMT: Denies: throat pain or dental pain Card: Denies: chest pain Resp: Denies: dyspnea GI: Denies: abdominal pain, nausea, vomiting or diarrhea Musc: Denies: neck pain or back pain Skin/Breast: Reports: rash Neuro: Denies: headache(s) PFSH ED PFSH: Medical History Polysubstance (excluding opioids) dependence Fracture, Colles, left, closed Surgical History H/O tubal ligation Social History Smoking and tobacco/nicotine status: current every day tobacco/nicotine user Alcohol intake: current Substance/Drug Use: current Physical Exam Const: COMMON NORMALS: no acute distress, patient oriented x3 and healthy appearing HENMT: COMMON NORMALS: normocephalic and atraumatic HEAD & SCALP: normocephalic and atraumatic Neck/C-Spine: COMMON NORMALS: full ROM and supple Chest: COMMONS NORMALS: normal inspection of the chest Resp: COMMON NORMALS: normal respiratory effort, No retractions, No use of accessory muscles and clear to auscultation bilaterally AUSCULTATION: clear to auscultation bilaterally Extremity: COMMON NORMALS: full ROM Neuro: COMMON NORMALS: patient oriented x3, moves all extremities and no focal motor deficits Psych: COMMON NORMALS: mental status grossly normal, Normal thought process present and cooperative THOUGHT PROCESS: Normal thought process present Skin: COMMON NORMALS: no wounds NARRATIVE SKIN EXAM: Hives noted to arms and legs Course Vital Signs: Vital signs: Vital Signs Temperature 97.6 F 07/13/23 09:58 Pulse Rate 100 07/13/23 10:39 Respiratory Rate 18 07/13/23 10:39 Blood Pressure 133/70 07/13/23 10:39 Pulse Oximetry 100 07/13/23 10:39 Oxygen Delivery Me thod Room Air 07/13/23 10:39 MDM - Skin/Abscess/Foreign Bdy Medicial Decision Making Patient presents here with hives its improved after meds we will place on 5 days of steroids she is stable for discharge she is follow-up with PCP and return if worsening. Medical Records I reviewed the patient's medical records. No radiology studies performed this visit Discharge Plan Discharge Patient Disposition: Home Clinical Impression: Urticaria Condition: Stable Prescriptions: New prednisone 50 mg tablet 50 mg PO DAILY Qty: 5 0RF No Action multivitamin Tablet 1 tab PO DAILY acetaminophen 500 mg Tablet 1,500 mg PO Q6H PRN (Reason: Pain) albuterol sulfate 90 mcg/actuation Hfa Aerosol Inhaler 2 puff INHALATION QID PRN (Reason: Shortness Of Breath) Discharge Orders: Discharge ED (Routine); Ordered 07/13/23 Ordered By: Beckie Barajas Referrals: Zeeshan Rivera [Primary Care Provider] - 4-7 days Discharge Diet: Advance as tolerated Discharge Activity: Resume usual activity Patient Instructions: Urticaria (ED) Coding Level of Care Code ED Sheltered Workshop Worker for Janis Gleason
[2023-07-13] MEDS: methylPREDNISolone sod succ 125 mg/2 mL INJ IVP (10:32)
[2023-07-13] MEDS: diphenhydrAMINE 50 mg/mL SDV 1mL IVP (10:32)
[2023-07-13] MEDS: famotidine 20 mg/2 mL INJ 40 MG IVP (10:33)
[2023-07-13 10:39] VITALS: BP 133/70; PULSE 100; RESP 18; O2SAT 100
== END 2023-07-13 12:31 | disposition home or self-care (01) ==
PROVIDERS: Emergency Provider Emergency Medicine; PCP Family Medicine
DX: L50.9 Urticaria, unspecified (principal); Z72.0 Tobacco use
CPT/HCPCS: 96374; 96375; 99284; J1200; J2930; J3490

== ENCOUNTER 2023-10-31 08:41 | Emergency (ER) | payer MEDICAID, SELFPAY ==
[2023-10-31 08:45] VITALS: BP 121/86; PULSE 86; RESP 15; TEMP 36.7; O2SAT 99; BMI 25.8
[2023-10-31 09:00] VITALS: BP 121/86; PULSE 86; RESP 19; O2SAT 98
--- NOTE | 2023-10-31 09:06 | XRR_ITS ---
PROCEDURE INFORMATION: Exam: XR Chest Exam date and time: 10/31/2023 9:30 AM Age: 43 years old Clinical indication: Other: Syncope TECHNIQUE: Imaging protocol: Radiologic exam of the chest. Views: 1 view. COMPARISON: CT chest abdpel w/*[id number] 08/29/2019 2:26 AM FINDINGS: Lungs: Unremarkable. No consolidation or mass. Pleural spaces: Unremarkable. No pleural effusion. No pneumothorax. Heart/Mediastinum: Unremarkable. No cardiomegaly. Bones/joints: Unremarkable. XR/XR chest 1V portable [id number] IMPRESSION: No acute findings.
--- NOTE | 2023-10-31 09:08 | W.ED.SYNCOPE ---
HPI - Syncope General: Chief Complaint: Dizziness Stated Complaint: dizziness Time Seen by Provider: 10/31/23 08:55 Source: patient Mode of arrival: EMS Limitations: no limitations History of Present Illness: Patient is a 43-year-old female presents to ED today via EMS for evaluation of what she states was my blood pressure bottoming out . Patient states she was at work when she began feeling slightly dizzy and felt like her fingers were tingling. She states she checked her vitals and her blood pressure and her systolic BP was 80s?90s and her pulse was in the 40s. EMS states vitals were similar when they arrived but during en route her blood pressure and heart rate immediately bounced back and have been normal since. Patient states she has had multiple similar episodes over the past several months. She does feel like there may be an anxiety component. She states she was 30 minutes late to work this morning and was having to unload a truck so she was already stressed. She denies chest pain, shortness of breath, palpitations. She has had similar episodes in the past where she has blacked out . She has never sought medical evaluation for any of her symptoms she has not had insurance but she states her Medicaid has now kicked in and hoping to get follow-up. She has never had seizure-like activity during these episodes. She has had seizures previously when she was withdrawing from alcohol but states she has not had a seizure in over 2 years. She does states she has had intermittent headaches for years and will sometimes get a headache following one of these episodes. She arrives to the ED today with stable vital signs. complaint: almost passed out Onset (ago): hour(s) -: minutes(s) Prodromal symptoms: lightheaded, diaphoresis and other (tingling in hands) Witnessed: Yes - by Bystander Injuries sustained associated with event: none Associated symptoms: Reports headache(s) and nausea; Deny abdominal pain, chest pain, fever(s) or lightheadedness History: previous syncopal episode Treatments prior to arrival: none Review of Systems Const: Denies: fever(s), chills, body aches, fatigue or malaise Eyes: Denies: change in vision, blurry vision, photophobia, floaters or seeing flashes Card: Denies: chest pain, palpitations, irregular heart rhythm, edema, swelling of feet/ankles, lightheadedness, syncope, pre-syncope, dyspnea on exertion, orthopnea, leg pain with exertion or acrocyanosis Resp: Denies: dyspnea, productive cough or pain on inspiration GI: Reports: nausea; Denies: abdominal pain, vomiting, heartburn or diarrhea : Denies: flank pain, difficulty voiding, dysuria, urinary frequency, urinary urgency or urinary hesitancy Musc: Denies: neck pain, back pain, extremity pain, extremity swelling or joint pain Skin/Breast: Denies: rash Neuro: Reports: headache(s), sensory changes (tingling in her hands) and dizziness; Denies: weakness in extremities, difficulty walking or confusion Psych: Reports: anxiety; Denies: depression or hopelessness PFSH ED PFSH: Medical History Polysubstance (excluding opioids) dependence Fracture, Colles, left, closed Surgical History H/O tubal ligation Social History Smoking and tobacco/nicotine status: current every day tobacco/nicotine user Alcohol intake: current Substance/Drug Use: current Physical Exam Const: COMMON NORMALS: average body habitus, patient oriented x3, no limitations, healthy appearing, alert and well nourished GENERAL APPEARANCE: cooperative ORIENTATION/CONSCIOUSNESS: Yes awake, Yes oriented to person, Yes oriented to place and Yes oriented to time OTHER: slightly sweaty; keeps her eyes closed during entire history taking and seems to be doing deep meditative breathing HENMT: COMMON NORMALS: normocephalic and atraumatic HEAD & SCALP: normal to inspection, normocephalic and atraumatic FACE & SINUS: normal facial exam Eye: COMMON NORMALS: Equal, round and reactive pupils present and EOMs intact bilaterally GENERAL EYE: appearance normal, both eyes and all related structures and normal light reflex PUPIL: Yes Equal, round and reactive pupils present DIRECT OPHTHALMOSCOPY: Yes normal light reflex Neck/C-Spine: COMMON NORMALS: full ROM, no lymphadenopathy, supple and no meningeal signs Chest: COMMONS NORMALS: normal inspection of the chest Resp: COMMON NORMALS: normal respiratory effort and clear to auscultation bilaterally AUSCULTATION: clear to auscultation bilaterally Cardio: COMMON NORMALS: regular rate and regular rhythm RATE: regular rate RHYTHM: regular rhythm GI: COMMON NORMALS: Normal to inspection, nondistended, normoactive bowel sounds present, Soft to palpation, non-tender, No hepatosplenomegaly present and no masses PALPATION: Yes Soft to palpation and Yes No hepatosplenomegaly present : COMMON NORMALS: Yes no CVA tenderness BLADDER/KIDNEY EXAM: Yes no CVA tenderness Back/Pelvis: COMMON NORMALS: no CVA tenderness and thoracic and lumbar spine normal to inspection Extremity: COMMON NORMALS: normal to inspection GENERAL: Yes normal exam except as noted Neuro: MARCELINA COMA SCALE: document GCS findings [place] coma scale eye opening: Spontaneous [place] coma scale verbal response: Orientated Marcelina coma scale motor response: Obey commands Marcelina coma scale total score: 15 COMMON NORMALS: patient oriented x3, CN's II-XII intact bilaterally, moves all extremities, no focal motor deficits, no sensory deficits noted and gait normal SENSORIUM/ORIENTATION: Yes alert, Yes oriented to person, Yes oriented to place and Yes oriented to time MENINGEAL SIGNS: Yes no meningeal signs Skin: COMMON NORMALS: no rashes or lesions noted GENERAL SKIN EXAM: no rashes or lesions noted Course Vital Signs: Vital signs: Vital Signs Temperature 98.1 F 10/31/23 08:45 Pulse Rate 86 10/31/23 08:45 Respiratory Rate 15 10/31/23 08:45 Blood Pressure 121/86 10/31/23 08:45 Pulse Oximetry 99 10/31/23 08:45 Oxygen Delivery Me thod Room Air 10/31/23 08:45 MDM - Syncope Medical Decision Making Patient's vitals have been stable upon arrival. Her EKG is unremarkable. Based on history I suspect a presyncopal vasovagal episode. She has had multiple episodes previously. Her blood work is unremarkable. Had UA/UDS ordered but patient was encountered multiple times for urine sample and stated she could not give one. 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 She does have a history of previous drug use. Patient is requesting a primary care follow-up as she states she has many medical issues that she would like addressed. Case management referral was placed for this. Ultimately she is stable for discharge from an ED aspect. Return to ED precautions given. Medical Records I reviewed the patient's medical records. Lab Data I reviewed the patient's lab results. 10/31/23 08:56 10/31/23 08:56 Laboratory Results WBC 6.82 10^3/uL (3.29-11.43) 10/31/23 08:56 RBC 4.60 10^6/uL (3.85-5.65) 10/31/23 08:56 Hgb 13.50 g/dL (11.27-16.99) 10/31/23 08:56 Hct 41.2 % (36-47) 10/31/23 08:56 MCV 89.6 fl (85-98) 10/31/23 08:56 MCH 29.3 pg (27-33) 10/31/23 08:56 MCHC 32.8 g/dL (30-55) 10/31/23 08:56 RDW 13.5 % (12.1-15.1) 10/31/23 08:56 Plt Count 472 10^3/cmm (157-399) H 10/31/23 08:56 MPV 9.5 fL (7.4-10.4) 10/31/23 08:56 Neut % (Auto) 61.4 % 10/31/23 08:56 Lymph % (Auto) 26.4 % 10/31/23 08:56 [place] % (Auto) 7.8 % 10/31/23 08:56 Eos % (Auto) 3.4 % 10/31/23 08:56 Baso % (Auto) 0.7 % 10/31/23 08:56 Neut # (Auto) 4.19 10^3/uL (1.8-7.7) 10/31/23 08:56 Lymph # (Auto) 1.8 10^3/uL (0.8-4.8) 10/31/23 08:56 [place] # (Auto) 0.5 10^3/uL (0.2-0.9) 10/31/23 08:56 Eos # (Auto) 0.2 10^3/uL (0.0-0.8) 10/31/23 08:56 Baso # (Auto) 0.1 10^3/uL (0.0-0.1) 10/31/23 08:56 Nucleated RBC % (auto) 0 % 10/31/23 08:56 Nucleated RBCs # 0.0 /100WBC 10/31/23 08:56 Sodium 138 mmol/L (136-145) 10/31/23 08:56 Potassium 3.4 mmol/L (3.5-5.1) L 10/31/23 08:56 Chloride 102 mmol/L (98-107) 10/31/23 08:56 Carbon Dioxide 22 mmol/L (22-29) 10/31/23 08:56 Anion Gap 17.4 (5-19) 10/31/23 08:56 BUN 18 mg/dL (6-20) 10/31/23 08:56 Creatinine 1.0 mg/dL (0.5-0.9) H 10/31/23 08:56 GFR Calculation 60.8 mL/min (90-130) L 10/31/23 08:56 Glucose 107 mg/dL (65-115) 10/31/23 08:56 Calculated Osmolality 288 mOsm/kg (285-295) 10/31/23 08:56 Calcium 9.7 mg/dL (8.5-10.5) 10/31/23 08:56 Total Bilirubin 0.8 mg/dL (0.15-1.2) 10/31/23 08:56 AST 21 U/L (0-32) 10/31/23 08:56 ALT 14 U/L (0-33) 10/31/23 08:56 Alkaline Phosphatase 94 U/L (35-105) 10/31/23 08:56 Troponin T Baseline 8 ng/L (0-10) 10/31/23 08:56 Total Protein 7.8 g/dL (6.6-8.7) 10/31/23 08:56 Albumin 4.5 g/dL (3.5-5.2) 10/31/23 08:56 Globulin 3.3 g/dL (1.3-4.6) 10/31/23 08:56 HCG, Qual Negative (Negative) 10/31/23 08:56 XR interpretation done by ED provider, pending radiology final review Discharge Plan Discharge Patient Disposition: Home Clinical Impression: Vasovagal near syncope Condition: Stable Prescriptions: No Action multivitamin Tablet 1 tab PO DAILY acetaminophen 500 mg Tablet 1,500 mg PO Q6H PRN (Reason: Pain) albuterol sulfate 90 mcg/actuation Hfa Aerosol Inhaler 2 puff INHALATION QID PRN (Reason: Shortness Of Breath) prednisone 50 mg tablet 50 mg PO DAILY Qty: 5 0RF Discharge Orders: Discharge ED (Routine); Ordered 10/31/23 Ordered By: Fabiola Willett Referrals: Zeeshan Rivera [Primary Care Provider] - Patient Instructions: Syncope (DC), Near Syncope (ED) Activity Restrictions/Additional Instructions: As we discussed I will place a case management referral to get you set up with a primary care provider for further evaluation. As we discussed we do not do all necessary medical testing here in the emergency department as many of this can be completed as an outpatient. Your blood work and workup here in the emergency department was unremarkable. You may return to the emergency department for severe chest pain, shortness of breath, difficulty breathing, fevers, further passing out episodes, or any other concerns you may have. I hope you begin to feel better soon. Coding Level of Care Code ED Counter Former for Janis Gleason
[2023-10-31 09:10] VITALS: BP 136/89; PULSE 88; RESP 17; O2SAT 99
--- NOTE | 2023-10-31 09:11 | ECG_ITS ---
[facility] Test Date: 2023-10-31 Pat Name: Christine Marr Department: Room: Gender: Female Order Picker/Assembler: : 1980 Requested By: Fabiola Willett Order Number: [id number] Niki MD: Cade Mackey M.D. Measurements Intervals [place] Rate: 79 P: 73 MN: 134 QRS: 48 QRSD: 80 T: 46 QT: 389 QTc: 447 Interpretive Statements SINUS RHYTHM POSSIBLE LEFT ATRIAL ENLARGEMENT [-0.1mV P-WAVE IN V1/V2] Compared to ECG 10/18/2018 20:25:02 Myocardial infarct finding no longer present Electronically Signed On 10-31-2023 13:06:46 CDT by Cade Mackey M.D. [id number]
[2023-10-31 09:13] LABS: Basophils # 0.1 10^3/uL (0.0-0.1); Basophils % 0.7 %; Eosinophils # 0.2 10^3/uL (0.0-0.8); Eosinophils % 3.4 %; Hematocrit 41.2 % (36-47); Lymphocytes # 1.8 10^3/uL (0.8-4.8); Lymphocytes % 26.4 %; Mean Corpuscular HGB Conc 32.8 g/dL (30-55); Mean Corpuscular Hemoglobin 29.3 pg (27-33); Mean Corpuscular Volume 89.6 fl (85-98); Mean Platelet Volume 9.5 fL (7.4-10.4); Monocytes # 0.5 10^3/uL (0.2-0.9); Monocytes % 7.8 %; Neutrophils # 4.19 10^3/uL (1.8-7.7); Neutrophils % 61.4 %; Nucleated Red Blood Cells % 0 %; Platelet Count 472 10^3/cmm (157-399); Red Cell Distribution Width 13.5 % (12.1-15.1); White Blood Count 6.82 10^3/uL (3.29-11.43)
[2023-10-31 09:20] LABS: HCG, Serum Qual Negative (Negative)
[2023-10-31 09:26] LABS: Troponin(5th) Baseline 8 ng/L (0-10)
[2023-10-31 09:27] LABS: Alanine Aminotransferase 14 U/L (0-33); Albumin Level 4.5 g/dL (3.5-5.2); Alkaline Phosphatase 94 U/L (35-105); Anion Gap 17.4 (5-19); Aspartate Amino Transferase 21 U/L (0-32); Blood Urea Nitrogen 18 mg/dL (6-20); Calcium 9.7 mg/dL (8.5-10.5); Carbon Dioxide 22 mmol/L (22-29); Chloride 102 mmol/L (98-107); Creatinine Clr Calc Pharmacy 74.7502; Globulin 3.3 g/dL (1.3-4.6); Glomerular Filtration Rate 60.8 mL/min (90-130); Glucose 107 mg/dL (65-115); Osmolality Calculated 288 mOsm/kg (285-295); Potassium 3.4 mmol/L (3.5-5.1); Sodium 138 mmol/L (136-145); Total Bilirubin 0.8 mg/dL (0.15-1.2); Total Protein 7.8 g/dL (6.6-8.7)
[2023-10-31] MEDS: sodium chloride 0.9% 1,000 ML 999 ML IV (10:04)
[2023-10-31] MEDS: ondansetron 2 mg/ML SDV 2 mL 4 MG IVP (10:07)
[2023-10-31 10:30] VITALS: BP 137/96; O2SAT 97
[2023-10-31 11:05] VITALS: BP 131/85; O2SAT 98
[2023-10-31 11:20] VITALS: BP 131/85; PULSE 90; O2SAT 100
== END 2023-10-31 11:21 | disposition home or self-care (01) ==
PROVIDERS: Emergency Provider Physician Assistant; PCP Family Medicine
DX: R55 Syncope and collapse (principal); Z72.0 Tobacco use
CPT/HCPCS: 71045; 80053; 84484; 84703; 85025; 93005; 96374; 99285; J2405; J7030

== ENCOUNTER 2024-06-12 11:00 | Emergency (ER) | payer MEDICAID, SELFPAY ==
[2024-06-12 11:00] VITALS: BP 140/96; PULSE 123; RESP 24; TEMP 38.9; O2SAT 97; BMI 23.3
[2024-06-12 11:08] VITALS: BP 112/72; PULSE 129; RESP 21; O2SAT 94
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
[2024-06-12 12:08] VITALS: BP 154/72; PULSE 133; RESP 29; O2SAT 97
[2024-06-12 12:19] LABS: Basophils % 0.5 %; Eosinophils % 0.4 %; Hematocrit 44.4 % (36-47); Lymphocytes # 0.4 10^3/uL (0.8-4.8); Lymphocytes % 4.6 %; Mean Corpuscular HGB Conc 32.9 g/dL (30-55); Mean Corpuscular Hemoglobin 28.6 pg (27-33); Mean Corpuscular Volume 86.9 fl (85-98); Mean Platelet Volume 9.2 fL (7.4-10.4); Monocytes # 0.3 10^3/uL (0.2-0.9); Monocytes % 3.9 %; Neutrophils # 7.43 10^3/uL (1.8-7.7); Neutrophils % 90.4 %; Nucleated Red Blood Cells % 0 %; Platelet Count 447 10^3/cmm (157-399); Red Blood Count 5.11 10^6/uL (3.85-5.65); Red Cell Distribution Width 13.6 % (12.1-15.1); White Blood Count 8.22 10^3/uL (3.29-11.43)
[2024-06-12] MEDS: ondansetron 2 mg/ML SDV 2 mL 8 MG IVP (12:22)
[2024-06-12] MEDS: ketorolac 30 mg/mL INJ IVP (12:22)
[2024-06-12] MEDS: acetaminophen 1,000 MG/100 ML PIGGYBACK 400 MG IV (12:23)
[2024-06-12] MEDS: sodium chloride 0.9% 1,000 ML 999 ML IV (12:23)
[2024-06-12 12:31] LABS: Lactic Sepsis W/Reflex 3.4 mmol/L (0.5-2.2)
[2024-06-12 12:32] LABS: Alanine Aminotransferase 12 U/L (0-33); Albumin Level 3.9 g/dL (3.5-5.2); Alkaline Phosphatase 105 U/L (35-105); Aspartate Amino Transferase 20 U/L (0-32); Blood Urea Nitrogen 27 mg/dL (6-20); C Reactive Protein 93.5 mg/L (0.0-4.9); Calcium 8.5 mg/dL (8.5-10.5); Carbon Dioxide 23 mmol/L (22-29); Chloride 92 mmol/L (98-107); Creatinine Clr Calc Pharmacy 78.7453; Globulin 3.2 g/dL (1.3-4.6); Glomerular Filtration Rate 68.3 mL/min (90-130); Glucose 109 mg/dL (65-115); Lipase 8 U/L (13-60); Osmolality Calculated 278 mOsm/kg (285-295); Sodium 131 mmol/L (136-145); Total Protein 7.1 g/dL (6.6-8.7)
[2024-06-12 12:35] LABS: Alcohol Level < 10 mg/dL (0-10); Anion Gap 19.8 (5-19); Potassium 3.8 mmol/L (3.5-5.1)
--- NOTE | 2024-06-12 12:42 | CTR_ITS ---
PROCEDURE INFORMATION: Exam: CT Abdomen And Pelvis With Contrast Exam date and time: 06/12/2024 1:51 PM Age: 44 years old Clinical indication: Abdominal pain; Generalized TECHNIQUE: Imaging protocol: Computed tomography of the abdomen and pelvis with contrast. Radiation optimization: All CT scans at this facility use at least one of these dose optimization techniques: automated exposure control; mA and/or kV adjustment per patient size (includes targeted exams where dose is matched to clinical indication); or iterative reconstruction. Contrast material: OMNIPAQUE 350; Contrast volume: 100 ml; Contrast route: INTRAVENOUS (IV); COMPARISON: CT abdomen pelvis wo con [id number] 01/22/2022 9:46 PM RADIATION DOSE METRICS: Total DLP (mGy-cm): 399.63 FINDINGS: Liver: Normal. No mass. Gallbladder and biliary ducts: Normal. No calcified stones. No ductal dilation. Pancreas: Normal. No ductal dilation. Spleen: Normal. No splenomegaly. Adrenal glands: Normal. No mass. Kidneys and ureters: Normal. No hydronephrosis. Stomach and bowel: Intussusception off of a small bowel loop in the left mid abdomen. No obstruction. Appendix: No evidence of appendicitis. Intraperitoneal space: Unremarkable. No free air. No significant fluid collection. Vasculature: Unremarkable. No abdominal aortic aneurysm. Lymph nodes: Unremarkable. No enlarged lymph nodes. Urinary bladder: Unremarkable as visualized. Reproductive: Unremarkable as visualized. Bones/joints: No acute fracture. Soft tissues: Unremarkable. CT/CT abdomen pelvis w con* [id number] IMPRESSION: Intussusception of the small bowel loop in the left mid abdomen. No signs of bowel obstruction.
[2024-06-12 13:08] VITALS: PULSE 113; RESP 25; O2SAT 95
[2024-06-12 13:33] LABS: Covid PCR NEGATIVE (Negative); Influenza A NEGATIVE (Negative); Influenza B NEGATIVE (Negative); Respiratory Syncytial Virus Ce NEGATIVE (Negative)
[2024-06-12] MEDS: iohexol 350 mg/mL 500 mL Btl (per mL) IV (13:53)
[2024-06-12 14:00] VITALS: BP 127/87; PULSE 111; RESP 12; O2SAT 88
[2024-06-12 14:04] LABS: Reflex Lactate Order REFLEX LACTIC ORDERD
[2024-06-12 14:07] LABS: Bilirubin Urine Negative (Negative); Blood Urine Negative (Negative); Glucose Urine UA Negative (Normal); Ketones Urine Trace (Negative); Leukocyte Esterase Urine Negative (Negative); Nitrate Urine Negative (Negative); Protein Urine Trace (Negative); Urine Appearance Cloudy (CLEAR); Urine Color Yellow (Yellow); Urobilinogen Urine 0.2 mg/dL (Negative)
[2024-06-12 14:11] LABS: HCG Qualitative Urine. Negative (Negative)
[2024-06-12 14:13] LABS: Amphetamines Screen Urine Positive (Negative); Bacteria Urine 3+ /hpf; Barbiturates Screen Urine Negative (Negative); Benzodiazepines Screen Urine Negative (Negative); Cocaine Screen Urine Negative (Negative); Hyaline Casts Urine 1.65 /lpf; Opiate Screen Urine Negative (Negative); PCP Screen Urine Negative (Negative); RBC Urine 0-2 /hpf (0-2); THC Screen Urine Positive (Negative); WBC Urine 0-5 /hpf (0-5)
[2024-06-12 14:32] LABS: Specific Gravity, Urine 1.031 (1.005-1.030); UA Slide Review UA Slide Review Perf
[2024-06-12] MEDS: cefTRIAXone 1,000 mg SDV 1000 MG IVP (14:58)
[2024-06-12 15:18] VITALS: PULSE 80; PULSE 84; RESP 22; RESP 24; O2SAT 95; O2SAT 96
== END 2024-06-12 15:20 | disposition home or self-care (01) ==
PROVIDERS: Emergency Provider Emergency Medicine; PCP Family Medicine
DX: K52.9 Noninfective gastroenteritis and colitis, unspecified (principal); N39.0 Urinary tract infection, site not specified; E86.0 Dehydration; F19.10 Other psychoactive substance abuse, uncomplicated; Z11.52 Encounter for screening for COVID-19; Z72.0 Tobacco use
CPT/HCPCS: 36415; 74177; 80053; 80306; 80307; 81001; 81025; 83605; 83690; 84702; 85025; 86140; 87637; 96365; 96375; 99285; J0131; J0696; J1885; J2405; J7030

== ENCOUNTER 2024-09-09 16:49 | Emergency (ER) | payer SELFPAY ==
[2024-09-09 16:51] VITALS: BP 105/76; PULSE 88; TEMP 36.3; O2SAT 100; BMI 22.6
[2024-09-09 17:11] VITALS: BP 118/91; O2SAT 98
[2024-09-09 17:18] LABS: Basophils # 0.1 10^3/uL (0.0-0.1); Basophils % 0.5 %; Eosinophils # 0.2 10^3/uL (0.0-0.8); Eosinophils % 2.1 %; Hematocrit 46.9 % (36-47); Lymphocytes # 1.8 10^3/uL (0.8-4.8); Mean Corpuscular HGB Conc 31.6 g/dL (30-55); Mean Corpuscular Hemoglobin 28.7 pg (27-33); Mean Corpuscular Volume 90.9 fl (85-98); Mean Platelet Volume 9.6 fL (7.4-10.4); Monocytes # 0.7 10^3/uL (0.2-0.9); Monocytes % 7.2 %; Neutrophils # 7.17 10^3/uL (1.8-7.7); Neutrophils % 71.9 %; Nucleated Red Blood Cells % 0 %; Platelet Count 456 10^3/cmm (157-399); Red Blood Count 5.16 10^6/uL (3.85-5.65); Red Cell Distribution Width 13.9 % (12.1-15.1); White Blood Count 9.98 10^3/uL (3.29-11.43)
[2024-09-09] MEDS: ondansetron 2 mg/ML SDV 2 mL 4 MG IVP (17:18)
[2024-09-09] MEDS: ketorolac 30 mg/mL INJ IVP (17:19)
--- NOTE | 2024-09-09 17:28 | ED_ITS ---
HPI - Female Genitourinary 2 General: Chief complaint: Urogenital-Female Stated complaint: abdominal pain Time Seen by Provider: 09/09/24 17:03 History of Present Illness: Patient presents to the ER with complaint of right lower quadrant pain for the past few hours. She says also she has not urinated today since this morning. Patient still has her gallbladder and appendix. Patient does admit to some nausea. Patient denies any fevers chills coughs colds sore throats. Patient does states she has had her tubes tied which is her only abdominal surgery. Related Data Home Medications ?Medication ?Instructions ?Recorded ?Confirmed acetaminophen 500 mg tablet 1,500 mg PO Q6H PRN Pain 0 01/21/22 06/12/24 multivitamin 1 tab PO DAILY 01/21/2210/01 ibuprofen 200 mg tablet (Advil) 400 mg PO Q6H PRN Pain 06/12/24 06/12/24 Previous Rx's ?Medication ?Instructions ?Recorded diclofenac sodium 50 mg 50 mg PO BID PRN pain #14 ta bs 06/12/24 tablet,delayed release ciprofloxacin HCl 500 mg tablet 500 mg PO Q12H #20 tab s 09/09/24 Allergies Allergy/AdvReac Type Severity Reaction Status Date / Time blueberry Allergy ALGY-Hives Verified 09/09/24 16:57 piperacillin (From Zosyn) Allergy ALGY-Anaphy Verified 09/09/24 16:57 laxis strawberry Allergy ALGY-Hives Verified 09/09/24 16:57 tazobactam (From Zosyn) Allergy ALGY-Anaphy Verified 09/09/24 16:57 laxis Review of Systems 2 General: Reports: 10 or more systems reviewed and unremarkable except in HPI and below PFSH ED 2 PFSH: Medical History Polysubstance (excluding opioids) dependence Fracture, Colles, left, closed Surgical History H/O tubal ligation Social History Smoking and tobacco/nicotine status: current every day tobacco/nicotine user Alcohol intake: current Substance/Drug Use: current Physical Exam 2 Const: COMMON NORMALS: no acute distress, average body habitus, patient oriented x3, no limitations, healthy appearing, alert and well nourished HENMT: COMMON NORMALS: normocephalic, atraumatic, hearing grossly normal bilaterally, external ears normal, Normal external nose present, moist oral mucous membranes and oropharynx normal HEAD & SCALP: normocephalic and atraumatic NOSE: Normal external nose present EXTERNAL EAR: Yes external ears normal Neck/C-Spine: COMMON NORMALS: full ROM, no lymphadenopathy, supple, no meningeal signs, no JVD and Thyroid normal THYROID: Thyroid normal Chest: COMMONS NORMALS: normal inspection of the chest and normal palpation of entire chest wall Resp: COMMON NORMALS: normal respiratory effort, No retractions, No use of accessory muscles and clear to auscultation bilaterally AUSCULTATION: clear to auscultation bilaterally Cardio: COMMON NORMALS: no JVD, regular rate, regular rhythm, S1 normal heart sound present, S2 normal heart sound present, No gallops present (Cardio), No clicks present (Cardio), No murmurs present (Cardio) and No rub (Cardio) R ATE: regular rate RHYTHM: regular rhythm HEART SOUNDS: S1 normal heart sound present and S2 normal heart sound present GI: COMMON NORMALS: Normal to inspection, nondistended, normoactive bowel sounds present, Soft to palpation, non-tender, No hepatosplenomegaly present and no masses PALPATION: Yes Soft to palpation and Yes No hepatosplenomegaly present Neuro: COMMON NORMALS: patient oriented x3 SENSORIUM/ORIENTATION: Yes alert MENINGEAL SIGNS: Yes no meningeal signs Course 2 Vital Signs: Vital signs: Vital Signs Temperature 97.4 F L 09/09/24 16:51 Pulse Rate 88 09/09/24 16:51 Blood Pressure 118/91 09/09/24 17:11 Pulse Oximetry 98 09/09/24 17:11 Oxygen Delivery Me thod Room Air 09/09/24 17:11 MDM - Female Medical Decision Making Lab work reviewed, essentially unremarkable other than significant urinary tract infection and positive for amphetamines and marijuana. Patient be given Cipro for her UTI and discharged home. Medical Records I reviewed the patient's medical records. Lab Data I reviewed the patient's lab results. 09/09/24 17:06 09/09/24 17:06 Laboratory Results WBC 9.98 10^3/uL (3.29-11.43) 09/09/24 17:06 RBC 5.16 10^6/uL (3.85-5.65) 09/09/24 17:06 Hgb 14.80 g/dL (11.27-16.99) 09/09/24 17:06 Hct 46.9 % (36-47) 09/09/24 17:06 MCV 90.9 fl (85-98) 09/09/24 17:06 MCH 28.7 pg (27-33) 09/09/24 17:06 MCHC 31.6 g/dL (30-55) 09/09/24 17:06 RDW 13.9 % (12.1-15.1) 09/09/24 17:06 Plt Count 456 10^3/cmm (157-399) H 09/09/24 17:06 MPV 9.6 fL (7.4-10.4) 09/09/24 17:06 Neut % (Auto) 71.9 % 09/09/24 17:06 Lymph % (Auto) 18.0 % 09/09/24 17:06 Woods % (Auto) 7.2 % 09/09/24 17:06 Eos % (Auto) 2.1 % 09/09/24 17:06 Baso % (Auto) 0.5 % 09/09/24 17:06 Neut # (Auto) 7.17 10^3/uL (1.8-7.7) 09/09/24 17:06 Lymph # (Auto) 1.8 10^3/uL (0.8-4.8) 09/09/24 17:06 Woods # (Auto) 0.7 10^3/uL (0.2-0.9) 09/09/24 17:06 Eos # (Auto) 0.2 10^3/uL (0.0-0.8) 09/09/24 17:06 Baso # (Auto) 0.1 10^3/uL (0.0-0.1) 09/09/24 17:06 Nucleated RBC % (auto) 0 % 09/09/24 17:06 Nucleated RBCs # 0.0 /100WBC 09/09/24 17:06 Sodium 138 mmol/L (136-145) 09/09/24 17:06 Potassium 3.9 mmol/L (3.5-5.1) 09/09/24 17:06 Chloride 101 mmol/L (98-107) 09/09/24 17:06 Carbon Dioxide 23 mmol/L (22-29) 09/09/24 17:06 Anion Gap 17.9 (5-19) 09/09/24 17:06 BUN 16 mg/dL (6-20) 09/09/24 17:06 Creatinine 0.7 mg/dL (0.5-0.9) 09/09/24 17:06 GFR Calculation 91.3 mL/min (90-130) 09/09/24 17:06 Glucose 78 mg/dL (65-115) 09/09/24 17:06 Calculated Osmolality 286 mOsm/kg (285-295) 09/09/24 17:06 Lactic Acid 2.1 mmol/L (0.5-2.2) 09/09/24 17:06 Calcium 9.8 mg/dL (8.5-10.5) 09/09/24 17:06 Magnesium 1.9 mg/dL (1.7-2.3) 09/09/24 17:06 Total Bilirubin 0.8 mg/dL (0.15-1.2) 09/09/24 17:06 AST 19 U/L (0-32) 09/09/24 17:06 ALT 13 U/L (0-33) 09/09/24 17:06 Alkaline Phosphatase 99 U/L (35-105) 09/09/24 17:06 Total Protein 7.5 g/dL (6.6-8.7) 09/09/24 17:06 Albumin 4.5 g/dL (3.5-5.2) 09/09/24 17:06 Globulin 3.0 g/dL (1.3-4.6) 09/09/24 17:06 Urine Color Yellow (Yellow) 09/09/24 17:23 Urine Appearance Slightly cloudy (CLEAR) 09/09/24 17:23 Urine pH 6 (5-7) 09/09/24 17:23 Ur Specific [place] 1.015 (1.005-1.030) 09/09/24 17:23 Urine Protein Neg (Negative) 09/09/24 17:23 Urine Glucose (UA) Norm (Normal) 09/09/24 17:23 Urine Ketones Negative (Negative) 09/09/24 17:23 Urine Blood 3+ (Negative) A 09/09/24 17:23 Urine Nitrate Negative (Negative) 09/09/24 17:23 Urine Bilirubin Neg (Negative) 09/09/24 17:23 Urine Urobilinogen Norm mg/dL (Negative) 09/09/24 17:23 Ur Leukocyte Esterase 2+ (Negative) A 09/09/24 17:23 Urine RBC 11-20 /hpf (0-2) H 09/09/24 17:23 Urine WBC 21-50 /hpf (0-5) H 09/09/24 17:23 Ur Squamous Epith Cells 0-5 /hpf (0-5) 09/09/24 17:23 Amorphous Sediment Not Reportable 09/09/24 17:23 Urine Bacteria 3+ /hpf (NONE) H 09/09/24 17:23 Hyaline Casts 0.40 /lpf 09/09/24 17:23 Urine Opiates Screen Negative ng/mL (Negative) 09/09/24 17:23 Ur Barbiturates Screen Negative ng/mL (Negative) 09/09/24 17:23 Ur Phencyclidine Scrn Negative ng/mL (Negative) 09/09/24 17:23 Ur Amphetamines Screen Positive ng/mL (Negative) H 09/09/24 17:23 U Benzodiazepines Scrn Negative ng/mL (Negative) 09/09/24 17:23 Urine Cocaine Screen Negative ng/mL (Negative) 09/09/24 17:23 U Marijuana (THC) Screen Positive ng/mL (Negative) H 09/09/24 17:23 All radiology interpretation(s) finalized by discharge Discharge Plan Discharge Patient Disposition: Home Clinical Impression: Methamphetamine use, Cannabis abuse Urinary tract infection Qualifiers: Urinary tract infection type: acute cystitis Hematuria presence: with hematuria Qualified Code(s): N30.01 - Acute cystitis with hematuria Condition: Stable Prescriptions: New ciprofloxacin HCl 500 mg tablet 500 mg PO Q12H Qty: 20 0RF No Action multivitamin Tablet 1 tab PO DAILY acetaminophen 500 mg Tablet 1,500 mg PO Q6H PRN (Reason: Pain) ibuprofen [Advil] 200 mg Tablet 400 mg PO Q6H PRN (Reason: Pain) diclofenac sodium 50 mg tablet,delayed release (DR/EC) 50 mg PO BID PRN (Reason: pain) Qty: 14 0RF Discharge Orders: Discharge ED (Routine); Ordered 09/09/24 Ordered By: Yair Grimes Referrals: Zeeshan Rivera [Primary Care Provider] - 1 week Patient Instructions: Urinary Tract Infection - Women, Methamphetamine Use Disorder (ED) Activity Restrictions/Additional Instructions: Please take all your antibiotics as prescribed for your urinary tract infection. Please do not use any more methamphetamines as this may make your pain worse. Thank you for choosing [facility] for your healthcare needs today. Please realize that you were seen in the emergency department and that we are providing you with an emergency medical screening exam and this may not be a complete and all exclusive of all testing and/or medical workup we may need to determine your element or severity of your illness. It is very important that you follow-up as instructed with your primary care provider or specialist for the additional evaluation and to discuss your medical treatment plan. You may return to the emergency department should you have concerns or if your condition changes or worsens in any way. Print Language: Setswana Coding Level of Care Code ED Logistics Technician for Janis Gleason
[2024-09-09 17:34] LABS: Bacteria Urine 3+ /hpf; Squamous Epithelial Cell Urine 0-5 /hpf (0-5); WBC Urine 21-50 /hpf (0-5)
[2024-09-09 17:35] LABS: Alanine Aminotransferase 13 U/L (0-33); Albumin Level 4.5 g/dL (3.5-5.2); Alkaline Phosphatase 99 U/L (35-105); Anion Gap 17.9 (5-19); Aspartate Amino Transferase 19 U/L (0-32); Blood Urea Nitrogen 16 mg/dL (6-20); Calcium 9.8 mg/dL (8.5-10.5); Carbon Dioxide 23 mmol/L (22-29); Chloride 101 mmol/L (98-107); Creatinine Clr Calc Pharmacy 99.7599; Glomerular Filtration Rate 91.3 mL/min (90-130); Glucose 78 mg/dL (65-115); Magnesium 1.9 mg/dL (1.7-2.3); Osmolality Calculated 286 mOsm/kg (285-295); Potassium 3.9 mmol/L (3.5-5.1); Sodium 138 mmol/L (136-145); Total Bilirubin 0.8 mg/dL (0.15-1.2); Total Protein 7.5 g/dL (6.6-8.7)
[2024-09-09 17:36] LABS: Lactic Sepsis W/Reflex 2.1 mmol/L (0.5-2.2)
[2024-09-09 17:39] LABS: Add Urine Microscopic? YES; Bilirubin Urine Neg (Negative); Blood Urine 3+ (Negative); Glucose Urine UA Norm (Normal); Ketones Urine Negative (Negative); Nitrate Urine Negative (Negative); Protein Urine Neg (Negative); Specific Gravity, Urine 1.015 (1.005-1.030); Urine Appearance Slightly Cloudy (CLEAR); Urine Color Yellow (Yellow); Urobilinogen Urine Norm (Negative); pH Urine 6 (5-7)
[2024-09-09 17:40] LABS: Add Urine Culture? Yes; Leukocyte Esterase Urine 2+ (Negative)
[2024-09-09 17:44] LABS: Amphetamines Screen Urine Positive (Negative); Barbiturates Screen Urine Negative (Negative); Benzodiazepines Screen Urine Negative (Negative); Cocaine Screen Urine Negative (Negative); Opiate Screen Urine Negative (Negative); PCP Screen Urine Negative (Negative); THC Screen Urine Positive (Negative)
[2024-09-09] MEDS: ciprofloxacin 500 mg Tablet PO (18:35)
[2024-09-09 18:44] VITALS: BP 115/77; PULSE 80; O2SAT 97
[2024-09-09 19:01] LABS: Reflex Lactate Order REFLEX LACTIC ORDERD
== END 2024-09-09 18:45 | disposition home or self-care (01) ==
PROVIDERS: Emergency Provider Emergency Medicine; PCP Family Medicine
DX: F15.10 Other stimulant abuse, uncomplicated (principal); F12.10 Cannabis abuse, uncomplicated; N30.01 Acute cystitis with hematuria; Z72.0 Tobacco use
CPT/HCPCS: 80053; 80306; 81001; 83605; 83735; 85025; 87086; 96374; 96375; 99284; J1885; J2405; J9999

== ENCOUNTER 2024-12-06 14:55 | Oncology outpatient (recurring) (ONCR) | payer OTHER, SELFPAY ==
[2024-11-23] MEDS: rabies vaccine 2.5 unit SDV IM (15:47)
[2024-11-23 15:54] VITALS: BP 145/83; PULSE 97; TEMP 37; O2SAT 98
[2024-11-29] MEDS: rabies vaccine 2.5 unit SDV IM (15:00)
[2024-12-06] MEDS: rabies vaccine 2.5 unit SDV IM (15:32)
== END 2024-12-06 23:59 | disposition home or self-care (01) ==
PROVIDERS: PCP Family Medicine; Visit Provider Emergency Medicine
DX: Z23 Encounter for immunization (principal); Z20.3 Contact with and (suspected) exposure to rabies; T14.8XXA Other injury of unspecified body region, initial encounter; X58.XXXA Exposure to other specified factors, initial encounter
CPT/HCPCS: 90471; 90675